=== PATIENT | female | born 1960 | race Caucasian/White ===

== ENCOUNTER 2018-09-04 11:14 | Outpatient (REF) | payer MEDICARE, SELFPAY ==
--- NOTE | 2018-09-04 11:00 | PAPFT_PTH ---
PATIENT: Coni Dennison LOC: [facility] U#:[id number] AGE/SX: 58/F ROOM: RE09/04/[address]: NAYELI Bernstein : 1960 BED: DIS: 09/04/2018 SPEC #: [id number] RECD: 09/04/18 12:58 STATUS: JUANITA REQ #: [id number] TARAN: 09/04/18 11:[address]: Roxy Ramires DEPT: [facility] Cytology RECD BY: Brooklyn Mark ENTERED: 09/04/18 12:58 SP TYPE: PAPFT OTHR DR: Bharat Levy MD Tissues: 1 - CX/ENDOCX FOR PAP SMEARS Procedures: PAP THIN PREP/[facility] Screening Comments: [id number]
== END 2018-09-04 11:34 ==
LOC: LBN 11:14
PROVIDERS: PCP Family Medicine; Visit Provider Nurse Practitioner Family
DX: Z12.4 Encounter for screening for malignant neoplasm of cervix (principal)
CPT/HCPCS: 88142

== ENCOUNTER 2018-09-25 00:06 | Outpatient (CLI) | payer MEDICARE, SELFPAY ==
--- NOTE | 2018-09-25 10:29 | DI.MAMMO_ITS ---
SYMPTOMS/DIAGNOSIS: SCREENING, Z12.31 MAMMOGRAMS: Mammograms were interpreted according to the usual protocol including computer analysis with CAD system, tomosynthesis and C view imaging. Comparison is with the prior examinations. Calcifications are seen. No suspicious masses are seen in the right breast. There is an asymmetric density in the posterior central left breast seen on the craniocaudad view. This area should be further evaluated with a spot compression view. Ultrasound may be indicated at that time. IMPRESSION: Additional views of the left breast as described above. Category 0 , breast density B. [facility] ASSESSMENT OF FINDINGS: Incomplete: Needs additional imaging evaluation. Category 0. Patient will receive a letter notifying them of these results. BI-RADS category B. There are scattered areas of fibroglandular density.
== END 2018-09-25 00:26 ==
PROVIDERS: PCP Family Medicine; Visit Provider Nurse Practitioner Family
DX: Z12.31 Encounter for screening mammogram for malignant neoplasm of breast (principal); R92.8 Other abnormal and inconclusive findings on diagnostic imaging of breast
CPT/HCPCS: 77063; 77067

== ENCOUNTER 2018-10-02 14:15 | Outpatient (CLI) | payer MEDICARE, SELFPAY ==
--- NOTE | 2018-10-02 14:20 | DI.COMBO_ITS ---
SYMPTOM/DIAGNOSIS: F/U ABNL MAMMO, LT ASYMMETRIC DENSITY LEFT BREAST ADDITIONAL VIEWS AND LEFT BREAST ULTRASOUND: Additional images are interpreted according to the usual protocol including tomosynthesis and 2D imaging. In the area of concern on the initial mammogram, there is no persistent mass. Asymmetric density is seen in the medial left breast on the spot compression view. It appears unchanged compared to prior examinations. Nonspecific benign appearing calcifications are seen in the breast. These appear stable. At ultrasound, there is a well circumscribed, radially oriented, anechoic lesion at the 1 o'clock position of the left breast, 6 cm. from the nipple. No internal blood flow or solid component is seen. No suspicious cystic or solid masses are seen in the visualized portions of the left breast. IMPRESSION: No definite evidence for malignancy. A 6 month follow up left breast mammogram is requested for re-evaluation. Category 3. The findings were discussed with the patient on the date of the examination. Breast density, Category B. MQSA ASSESSMENT OF FINDINGS: Probably benign. Six month follow-up recommended. Category 3. Patient will receive a letter notifying them of these results. BI-RADS category B. There are scattered areas of fibroglandular density.
== END 2018-10-02 14:35 ==
PROVIDERS: PCP Family Medicine; Visit Provider Nurse Practitioner Family
DX: Z12.31 Encounter for screening mammogram for malignant neoplasm of breast (principal); R92.8 Other abnormal and inconclusive findings on diagnostic imaging of breast; N60.82 Other benign mammary dysplasias of left breast
CPT/HCPCS: 76642; 77063; 77067

== ENCOUNTER 2019-04-08 00:10 | Outpatient (CLI) | payer MEDICARE, SELFPAY ==
--- NOTE | 2019-04-08 13:21 | DI.MAMMO_ITS ---
SYMPTOM/DIAGNOSIS: R92.8, F/U ABNL MAMMO, 6 MO F/U LEFT MAMMOGRAM: Mammograms were interpreted according to the usual protocol including computer analysis with CAD system, tomosynthesis and C view imaging. This is a 6 month follow up from 09/25/18 for an area of nodularity in the upper outer quadrant. The left breast is composed of scattered fibroglandular densities, breast density, Category B. No suspicious masses or suspicious microcalcifications are seen. There is nodularity in the upper outer quadrant of the breast which appears stable when compared with exams back to 2007. IMPRESSION: Category 2, negative mammogram with benign findings. Bilateral screening should be resumed in 6 months. [facility] ASSESSMENT OF FINDINGS: Negative with benign findings. Category 2. Patient will receive a letter notifying them of these results. BI-RADS category B. There are scattered areas of fibroglandular density.
== END 2019-04-08 00:30 ==
PROVIDERS: PCP Family Medicine; Visit Provider Nurse Practitioner Family
DX: Z12.31 Encounter for screening mammogram for malignant neoplasm of breast (principal); R92.8 Other abnormal and inconclusive findings on diagnostic imaging of breast; N60.82 Other benign mammary dysplasias of left breast
CPT/HCPCS: 77061; 77065; G0279

== ENCOUNTER 2019-05-27 20:37 | Emergency (ER) | payer MEDICARE, SELFPAY ==
--- NOTE | 2019-05-27 20:42 | NUR.NOTE ---
Nursing Note: pt states that approximately 3 hrs ago she got part of her hearing aid stuck in her ear and has not been able to remove it
[2019-05-27 20:43] VITALS: BP 150/90; RESP 16; TEMP 36.8; O2SAT 93
--- NOTE | 2019-05-27 21:07 | W.ED.GENAD ---
Discharge Plan Disposition Patient Disposition: HOME Discharge Details Chief Complaint: EarProblem Clinical Impression: Foreign body in right ear Primary Care Provider: Bharat Levy ED Provider: Cristhian Orlando Home Meds and New Rx's Prescriptions: Continued paroxetine HCl 20 mg tablet 20 mg PO DAILY Qty: 90 RF: 4 acetaminophen [Tylenol] 325 MG tablet 325 mg PO PRN RF: 0 albuterol sulfate 2.5 MG/0.5 ML solution for nebulization 2.5 mg Inhalation Q6H PRN Qty: 1 RF: 0 montelukast [Singulair] 10 mg tablet 10 mg PO DAILY Qty: 90 RF: 4 clonazepam 1 mg tablet 1 mg PO HS Qty: 30 RF: 2 varenicline 1 mg tablet 1 mg PO BID Qty: 60 RF: 2 Discharge Instructions Additional Instructions: Please follow-up with your career information specialist Return to the ER for any worsening or new concerning symptoms. Medical Decision Making 58-year-old female here with piece of hearing aid stuck in her right external canal. Patient provided verbal informed consent to proceed with foreign body removal. Surgical otoscope was utilized to visualize silicone And right external auditory canal. Forceps utilized to grasp foreign body and easily removed. Patient had some discomfort during the procedure. There is no bleeding. Otoscopic examination of her tympanic membrane post procedure revealed normal tympanic membrane with no perforation. Patient noted significant improvement in discomfort with removal. Usual and customary discharge instructions were provided. HPI General Mode of arrival: ambulatory. Date/Time Provider Initiated Documentation: 05/27/19 20:46. Limitations to Documentation: no limitations. Information obtained by: patient. HPI Narrative: 58-year-old female here with foreign body in her right ear. Patient notes that piece of her hearing aid broke off in her ear about 3 hours ago. She is been attempting to remove it unsuccessfully and thinks she caused some trauma to her external ear canal. Discomfort is moderate. Worse on palpation. No modifiers. No associated bleeding from her ear. Related Data Home Medications Medication Instructions Recorded Confirmed acetaminophen [Tylenol] 325 mg PO PRN tab-cap 09/26/16 05/27/19 albuterol sulfate 2.5 mg INHALATION Q6H PRN #1 box 11/21/17 05/27/19 paroxetine 20 mg tablet 20 mg PO DAILY #90 tab-cap 11/15/18 05/27/19 montelukast 10 mg tablet 10 mg PO DAILY #90 tab-cap 01/14/19 03/14/19 clonazepam 1 mg tablet 1 mg PO HS #30 tab-cap 03/21/19 05/27/19 varenicline 1 mg tablet 1 mg PO BID #60 tab 04/08/19 05/27/19 Previous Rx's Medication Instructions Recorded albuterol sulfate 2.5 mg INHALATION Q6H PRN #1 box 11/21/17 paroxetine 20 mg tablet 20 mg PO DAILY #90 tab-cap 11/15/18 montelukast 10 mg tablet 10 mg PO DAILY #90 tab-cap 01/14/19 clonazepam 1 mg tablet 1 mg PO HS #30 tab-cap 03/21/19 varenicline 1 mg tablet 1 mg PO BID #60 tab 04/08/19 Allergies Allergy/AdvReac Type Severity Reaction Status Date / Time pneumococcal vaccine Allergy Severe Verified 05/27/19 20:46 bacitracin Allergy Intermediate Hives Verified 05/27/19 20:46 latex Allergy Intermediate Hives Verified 05/27/19 20:46 neomycin Allergy Intermediate Hives Verified 05/27/19 20:46 polymyxin B Allergy Intermediate Hives Verified 05/27/19 20:46 varenicline Allergy Intermediate Hives Verified 05/27/19 20:46 azithromycin AdvReac Intermediate Malaise, Verified 05/27/19 20:46 stomach discomfort trazodone AdvReac Intermediate Headache Verified 05/27/19 20:46 General Stated Complaint: EarProblem HARDIK: 5 Review of Systems ENT Reports as per HPI [facility] Medical History Grief at loss of child (Resolved) Surgical History Adenoidectomy (~2006) Bilateral salpingectomy with oophorectomy Cervical Procedure (~06/2005) Cholecystectomy (~2000) Colectomy Dilation and curettage (12/08/10) Endometrial Biopsy (~05/2005) HYSTERSCOPY (12/08/10) Myringotomy w/ PE (pressure equalizing) tubes Oophrectomy, Both (~1999) Social History Smoking/Tobacco Use Status: Current every day Tobacco Type: cigarettes Alcohol Intake: never Drug use: Current Sobriety Substance use type: does not use What type of physical activity do you participate in: none Seatbelt use: always Do you feel safe at home: Yes Do you feel safe in your relationship?: Yes Female Reproductive History Menstrual Menopause type: natural (LMP 2009) Exam HENMT Ears: EAC abnormal foreign body on the right (Silicone hearing aid cap) Skin Trauma: no lacerations or abrasions (Right ear) Course Vital Signs Temperature 36.8 C 05/27/19 20:43 Respiratory Rate 16 05/27/19 20:43 Blood Pressure 150/90 H 05/27/19 20:43 Pulse Oximetry 93 L 05/27/19 20:43 Temperature 36.8 C 05/27/19 20:43 Temperature Source Skin 05/27/19 20:43 Respiratory Rate 16 05/27/19 20:43 Respiratory Effort 05/27/19 20:47 Blood Pressure 150/90 H 05/27/19 20:43 Blood Pressure Position Sitting 05/27/19 20:43 Pulse Oximetry 93 L 05/27/19 20:43 Oxygen Delivery Method Room Air 05/27/19 20:43 Oxygen Flow Rate 0 05/27/19 20:43 Pain Level 2 05/27/19 20:43
[2019-05-27 21:12] VITALS: BP 150/90; RESP 16; TEMP 36.8; O2SAT 93
--- NOTE | 2019-05-27 21:14 | ED.GENADUL_ITS ---
Discharge Plan Disposition Patient Disposition: HOME Discharge Details Chief Complaint: EarProblem Clinical Impression: Foreign body in right ear Primary Care Provider: Bharat Levy ED Provider: Cristhian Orlando Home Meds and New Rx's Prescriptions: Continued paroxetine HCl 20 mg tablet 20 mg PO DAILY Qty: 90 RF: 4 acetaminophen [Tylenol] 325 MG tablet 325 mg PO PRN RF: 0 albuterol sulfate 2.5 MG/0.5 ML solution for nebulization 2.5 mg Inhalation Q6H PRN Qty: 1 RF: 0 montelukast [Singulair] 10 mg tablet 10 mg PO DAILY Qty: 90 RF: 4 clonazepam 1 mg tablet 1 mg PO HS Qty: 30 RF: 2 varenicline 1 mg tablet 1 mg PO BID Qty: 60 RF: 2 Discharge Instructions Additional Instructions: Please follow-up with your beauty specialist Return to the ER for any worsening or new concerning symptoms. Medical Decision Making 58-year-old female here with piece of hearing aid stuck in her right external canal. Patient provided verbal informed consent to proceed with foreign body removal. Surgical otoscope was utilized to visualize silicone And right external auditory canal. Forceps utilized to grasp foreign body and easily removed. Patient had some discomfort during the procedure. There is no bleeding. Otoscopic examination of her tympanic membrane post procedure revealed normal tympanic membrane with no perforation. Patient noted significant improvement in discomfort with removal. Usual and customary discharge instructions were provided. HPI General Mode of arrival: ambulatory . Date/Time Provider Initiated Documentation: 05/27/19 20:46 . Limitations to Documentation: no limitations . Information obtained by: patient . HPI Narrative: 58-year-old female here with foreign body in her right ear. Patient notes that piece of her hearing aid broke off in her ear about 3 hours ago. She is been attempting to remove it unsuccessfully and thinks she caused some trauma to her external ear canal. Discomfort is moderate. Worse on palpation. No modifiers. No associated bleeding from her ear. Related Data Home Medications Medication Instructions Recorded Confirmed acetaminophen [Tylenol] 325 mg PO PRN tab-cap 09/26/16 05/27/19 albuterol sulfate 2.5 mg INHALATION Q6H PRN #1 box 11/21/17 05/27/19 paroxetine 20 mg tablet 20 mg PO DAILY #90 tab-cap 11/15/18 05/27/19 montelukast 10 mg tablet 10 mg PO DAILY #90 tab-cap 01/14/19 03/14/19 clonazepam 1 mg tablet 1 mg PO HS #30 tab-cap 03/21/19 05/27/19 varenicline 1 mg tablet 1 mg PO BID #60 tab 04/08/19 05/27/19 Previous Rx's Medication Instructions Recorded albuterol sulfate 2.5 mg INHALATION Q6H PRN #1 box 11/21/17 paroxetine 20 mg tablet 20 mg PO DAILY #90 tab-cap 11/15/18 montelukast 10 mg tablet 10 mg PO DAILY #90 tab-cap 01/14/19 clonazepam 1 mg tablet 1 mg PO HS #30 tab-cap 03/21/19 varenicline 1 mg tablet 1 mg PO BID #60 tab 04/08/19 Allergies Allergy/AdvReac Type Severity Reaction Status Date / Time pneumococcal vaccine Allergy Severe Verified 05/27/19 20:46 bacitracin Allergy Intermediate Hives Verified 05/27/19 20:46 latex Allergy Intermediate Hives Verified 05/27/19 20:46 neomycin Allergy Intermediate Hives Verified 05/27/19 20:46 polymyxin B Allergy Intermediate Hives Verified 05/27/19 20:46 varenicline Allergy Intermediate Hives Verified 05/27/19 20:46 azithromycin AdvReac Intermediate Malaise, Verified 05/27/19 20:46 stomach discomfort trazodone AdvReac Intermediate Headache Verified 05/27/19 20:46 General Stated Complaint: EarProblem HARDIK: 5 Review of Systems ENT Reports as per HPI [facility] Medical History Grief at loss of child (Resolved) Surgical History Adenoidectomy (~2006) Bilateral salpingectomy with oophorectomy Cervical Procedure (~06/2005) Cholecystectomy (~2000) Colectomy Dilation and curettage (12/08/10) Endometrial Biopsy (~05/2005) HYSTERSCOPY (12/08/10) Myringotomy w/ PE (pressure equalizing) tubes Oophrectomy, Both (~1999) Social History Smoking/Tobacco Use Status: Current every day Tobacco Type: cigarettes Alcohol Intake: never Drug use: Current Sobriety Substance use type: does not use What type of physical activity do you participate in: none Seatbelt use: always Do you feel safe at home: Yes Do you feel safe in your relationship?: Yes Female Reproductive History Menstrual Menopause type: natural (LMP 2009) Exam HENMT Ears: EAC abnormal foreign body on the right (Silicone hearing aid cap) Skin Trauma: no lacerations or abrasions (Right ear) Course Vital Signs Temperature 36.8 C 05/27/19 20:43 Respiratory Rate 16 05/27/19 20:43 Blood Pressure 150/90 H 05/27/19 20:43 Pulse Oximetry 93 L 05/27/19 20:43 Temperature 36.8 C 05/27/19 20:43 Temperature Source Skin 05/27/19 20:43 Respiratory Rate 16 05/27/19 20:43 Respiratory Effort 05/27/19 20:47 Blood Pressure 150/90 H 05/27/19 20:43 Blood Pressure Position Sitting 05/27/19 20:43 Pulse Oximetry 93 L 05/27/19 20:43 Oxygen Delivery Method Room Air 05/27/19 20:43 Oxygen Flow Rate 0 05/27/19 20:43 Pain Level 2 05/27/19 20:43
== END 2019-05-27 21:12 | disposition home or self-care (01) ==
PROVIDERS: Emergency Provider Student in an Organized Health Care Education/Training Program; PCP Family Medicine
DX: T16.1XXA Foreign body in right ear, initial encounter (principal)
CPT/HCPCS: 69200; 99282

== ENCOUNTER 2019-09-10 11:40 | Outpatient (CLI) | payer MEDICARE, SELFPAY ==
[2019-09-10 12:56] LABS: HCT 42.9 % (36.0-46.0); HGB 14.1 g/dL (12.0-15.5); Mean Corp. HGB Concentration 32.9 g/dL (32.0-36.0); Mean Corpuscular Hemoglobin 30.5 pg (27.0-33.0); Mean Corpuscular Volume 92.9 fL (80-95); Mean Platelet Volume 8.8 fL (8.0-11.0); Platelet Count 384 x1000/uL (130-400); RBC 4.62 m/cumm (4.00-5.20); RBC Distribution Width 12.8 % (11.7-14.6); White Blood Cell Count 8.57 k/cumm (4.4-10.8)
[2019-09-10 13:53] LABS: ESR 22 mm/hr (0-30)
[2019-09-10 14:09] LABS: ALT 22 U/L (14-59); AST 20 U/L (15-37); Albumin 3.7 g/dL (3.4-5.0); Alkaline Phosphatase 110 U/L (46-116); Anion Gap 8.6 mmol/L (3-11); BUN 14 mg/dL (7-18); Bilirubin, Total 0.3 mg/dL (0.2-1.0); C-Reactive Protein 0.91 mg/dL (0.0-0.3); CO2 29.4 mmol/L (21.0-32.0); Calcium 9.4 mg/dL (8.5-10.1); Chloride 103 mmol/L (98-107); Glucose 93 mg/dL (70-100); Potassium 4.5 mmol/L (3.5-5.1); Sodium 141 mmol/L (136-145); TSH 2.08 uIU/mL (0.36-3.74); Total Protein 6.8 g/dL (6.4-8.2)
== END 2019-09-10 12:00 ==
PROVIDERS: PCP Family Medicine; Visit Provider Family Medicine
DX: R53.83 Other fatigue (principal); F32.9 Major depressive disorder, single episode, unspecified; M25.50 Pain in unspecified joint
CPT/HCPCS: 36415; 80053; 85027; 85652; 84443; 86140

== ENCOUNTER 2019-11-06 13:52 | Outpatient (CLI) | payer MEDICARE, SELFPAY ==
--- NOTE | 2019-11-06 13:45 | DI.RAD_ITS ---
EXAM: XR FOOT RT COMPLETE INDICATION: CONTUSION POSTERIOR HEEL S/P 2 X 6 FELL ON FOOT, S90.31XA. COMPARISON: No exams were available for comparison TECHNIQUE: 2D digital imaging was performed. FINDINGS: No acute fracture or dislocation is present. No radiopaque foreign bodies are seen in the soft tissu es. There does appear to be soft tissue swelling at the heel. IMPRESSION: No acute fracture or dislocation.
== END 2019-11-06 14:12 ==
PROVIDERS: PCP Family Medicine; Visit Provider Family Medicine
DX: M79.671 Pain in right foot (principal); S90.31XA Contusion of right foot, initial encounter; M79.89 Other specified soft tissue disorders
CPT/HCPCS: 73630

== ENCOUNTER 2019-12-30 14:21 | Outpatient (CLI) | payer MEDICARE, SELFPAY ==
--- NOTE | 2019-12-30 15:47 | DI.RAD_ITS ---
EXAM: XR LUMBAR SPINE COMPLETE CLINICAL HISTORY: pain R52. TECHNIQUE: 2D digital imaging was performed. COMPARISON: No exams were available for comparison FINDINGS: BONES: No fracture or destructive lesion. There is L5 spondylolysis. There is grade 1 spondylolisthe sis of L5 on S1. Osteophytes are seen at the endplates in the lower lumbar spine. There are degenera tive changes seen at the facet joints at L4-5 and L5-S1. DISKS: There is mild disc space narrowing at L5-S1. ALIGNMENT: Grade 1 spondylolisthesis of L5 on S1. SOFT TISSUE: Normal. IMPRESSION: Mild degenerative changes in the lumbar spine. L5 spondylolysis and grade 1 spondylolisthesis of L5 on S1.
== END 2019-12-30 14:41 ==
PROVIDERS: PCP Family Medicine; Visit Provider Internal Medicine
DX: M54.5 Low back pain (principal); M47.817 Spondylosis without myelopathy or radiculopathy, lumbosacral region; M43.06 Spondylolysis, lumbar region; M43.17 Spondylolisthesis, lumbosacral region
CPT/HCPCS: 72110

== ENCOUNTER 2020-03-19 09:28 | Outpatient (CLI) | payer MEDICARE, SELFPAY ==
[2020-03-20 19:54] LABS: COVID-19 RT-PCR UVMMC Result Negative (Negative)
== END 2020-03-19 09:48 ==
PROVIDERS: PCP Family Medicine; Visit Provider Family Medicine
DX: R05 Cough (principal); R06.09 Other forms of dyspnea
CPT/HCPCS: U0003

== ENCOUNTER 2020-09-04 07:56 | Outpatient (CLI) | payer MEDICARE, SELFPAY ==
[2020-09-07 11:42] LABS: Patient Race White; SARS-CoV-2 RNA Undetected (Undetected); SARS-CoV-2 Specimen Source Nasopharynx
== END 2020-09-04 08:16 ==
PROVIDERS: PCP Nurse Practitioner; Visit Provider Nurse Practitioner Family
DX: R06.02 Shortness of breath (principal)
CPT/HCPCS: U0003

== ENCOUNTER 2020-10-28 03:46 | Outpatient (CLI) | payer MEDICARE, SELFPAY ==
[2020-10-28 13:48] LABS: Hemoglobin A1C 5.9 % (<5.7)
[2020-10-28 14:00] LABS: Calculated LDL 147 mg/dL (<100); Cholesterol 217 mg/dL (<200); HDL Cholesterol 45 mg/dL (40-60); Triglyceride 128 mg/dL (<150)
[2020-10-29 19:56] LABS: Cat Epithelium IgE <0.35 kU/L; Cladosporium IgE <0.35 kU/L; Cocklebur IgE <0.35 kU/L; Dog Dander IgE <0.35 kU/L; Lamb's Quarter IgE <0.35 kU/L; Short Ragweed IgE <0.35 kU/L; Timothy Grass IgE <0.35 kU/L
[2020-10-29 20:22] LABS: Wormwood IgE <0.35 kU/L
[2020-11-05 17:49] LABS: CLASS 0; Fusarium oxysporum/vasinfectum <0.35 kU/L (<0.35); Rhodotorula IgE <0.35 kU/L (<0.35)
[2020-11-06 19:46] LABS: Alternaria Tenuis IgE <0.35 kU/L; Aspergillus Fumigatus IgE <0.35 kU/L; Bermuda Grass IgE <0.35 kU/L; Cockroach IgE <0.35 kU/L; Cottonwood IgE <0.35 kU/L; D Farinae IgE <0.35 kU/L; D Pteronyssinus IgE <0.35 kU/L; Eastern Sycamore IgE <0.35 kU/L; Elm IgE <0.35 kU/L; Giant Ragweed IgE <0.35 kU/L; Oak IgE <0.35 kU/L; Penicillium chrysogenum IgE <0.35 kU/L; Red Sorrel IgE <0.35 kU/L; Rough Pigweed IgE <0.35 kU/L; Silver Birch IgE <0.35 kU/L; Walnut Tree IgE <0.35 kU/L
[2020-11-06 20:08] LABS: Epicoccum purpurascens IgE <0.35 kU/L; Stemphyllium IgE <0.35 kU/L
[2020-11-11 17:48] LABS: CLASS 0; Cedar Red IgE <0.10 kU/L (<0.35)
== END 2020-10-28 04:06 ==
PROVIDERS: PCP Nurse Practitioner; Visit Provider Otolaryngology Otolaryngology/Facial Plastic Surgery
DX: R73.01 Impaired fasting glucose (principal); I63.50 Cerebral infarction due to unspecified occlusion or stenosis of unspecified cerebral artery; Z91.09 Other allergy status, other than to drugs and biological substances
CPT/HCPCS: 36415; 80061; 86003; 83036

== ENCOUNTER 2021-01-08 17:58 | Outpatient (REF) | payer MEDICARE, SELFPAY ==
[2021-01-10 15:29] LABS: COVID-19 RT-PCR UVMMC Result Negative (Negative)
== END 2021-01-08 17:59 | disposition home or self-care (01) ==
LOC: LBN 17:58
PROVIDERS: PCP Nurse Practitioner; Visit Provider Student in an Organized Health Care Education/Training Program
DX: Z20.822 Contact with and (suspected) exposure to COVID-19 (principal)
CPT/HCPCS: U0003

== ENCOUNTER 2021-02-05 13:48 | Emergency (ER) | payer MEDICARE, SELFPAY ==
--- NOTE | 2021-02-05 14:00 | W.ED.GENAD ---
Discharge Plan Disposition Patient Disposition: HOME Condition: Stable Discharge Details Clinical Impression: Acute respiratory infection, Pneumonia Primary Care Provider: Griselda Serna ED Provider: Marci Estrada Home Meds and New Rx's Prescriptions: New amoxicillin-pot clavulanate [Augmentin] 875-125 mg tablet 1 tab PO BID Qty: 10 RF: 0 doxycycline hyclate 100 mg tablet 100 mg PO BID Qty: 10 RF: 0 Continued paroxetine HCl 20 mg tablet 20 mg PO DAILY Qty: 90 RF: 4 clonazepam 1 mg tablet 1 mg PO HS Qty: 30 RF: 5 acetaminophen [Tylenol] 325 MG tablet 325 mg PO PRN RF: 0 albuterol sulfate 2.5 mg/0.5 mL solution for nebulization 2.5 mg Inhalation Q6H PRN Qty: 1 RF: 4 Discharge Instructions Instructions: Pneumonia (ED), Instructions for Self Monitoring Oxygen Saturation Additional Instructions: Your x-ray is reassuring today. However, I am concerned that your exam is more suggestive of pneumonia. I do feel that antibiotics are appropriate at this point. You will be started on Augmentin and doxycycline. Medications have been transmitted to your pharmacy of choice. Please continue on prednisone as previously prescribed by primary care. Please encourage water intake. Please continue with your nebulizer as previously prescribed. Your COVID-19 testing is pending. Please quarantine until these results have returned. We will contact you to the results have come back. If you develop difficulty breathing, increased shortness of breath, having oxygen saturations below 92%, chest pain or other new/worsening symptoms please seek care urgently once again. You are going home with home pulse oxyimeter as we are concerned you may have COVID. Attached is information on how to check this. Please follow up with your primary care in one week for reevaluation. Referrals: Griselda Serna, [employer] [Primary Care Provider] - Discharge Data Discharge Date/Time-TO BE ENTERED AT DEPARTURE: 02/05/21 15:35 Medical Decision Making Patient is a pleasant 60-year-old female presenting with chief complaint of cough, diminished with a sense of taste and smell, general malaise, diarrhea. She reports that symptoms began 4 days ago. Cough has been worsening. States that she has been having some shortness of breath. Has difficulty breathing. Denies any chest pain. No known fevers or chills. No recent travel. No sick contacts. Past history significant for active smoking, chronic rhinitis, postnasal drip, allergies, depression, fibromyalgia, asthma, COPD. Patient reports that she was seen by her primary care this morning who sent her to the emergency department for chest x-ray as well as Covid testing. Patient has been on prednisone and has been using nebulizer with minimal relief. On exam, patient appears nontoxic. Vital signs are stable she is hypertensive blood pressure 150/86. She no lower extremity edema, no calf tenderness. She has slight crackles in the left lower lobe, lung sounds otherwise clear. Normal cardiac exam. Chest x-ray was obtained and reviewed by radiologist: FINDINGS: LUNGS: Clear. No pleural abnormality seen. HEART: Normal. MEDIASTINUM: Normal. BONES: Unremarkable. IMPRESSION: No acute pulmonary findings. I discussed these findings with the patient. As she did have crackles noted on exam, worsening cough as well as her comorbidities, I am concerned that the patient may be developing pneumonia and feel that treatment with antibiotics appropriate needed in setting of normal chest x-ray. Patient will be started on doxycycline. She will continue with the steroids as previously prescribed. Encourage hydration. Return precautions were discussed. She will quarantine until the results have returned. Advise follow-up with primary care for reevaluation 1 week. All of her questions and concerns were addressed and she is agreement this plan. HPI General Mode of arrival: ambulatory. Date/Time Provider Initiated Documentation: 02/05/21 14:00. Limitations to Documentation: no limitations. Information obtained by: patient and RN notes reviewed. History of Present Illness 60 year old F presents to the emergency department with the chief complaint of Cough, shortness of breath, change in smell, general malaise, described as moderate, with intensity rated at 5. Quality is described as aching (Report generalized body ache), Patient reports no radiation. Patient started experiencing this day(s) (3) and it has been constant. No relieving factors improve symptom(s), No exacerbating factors reported . Patient notes cough, fever/chills, shortness of breath and weakness (Generalized fatigue); denies chest pain, diaphoresis, loss of appetite, nausea/vomiting and rash. Patient did receive the following treatments prior to arrival, other (Been on steroid) Related Data Home Medications Medication Instructions Recorded Confirmed acetaminophen [Tylenol] 325 mg PO PRN tab-cap 09/26/16 02/05/21 albuterol sulfate 2.5 mg/0.5 mL 2.5 mg INHALATION Q6H PRN #1 box 06/12/20 02/05/21 solution for nebulization clonazepam 1 mg tablet 1 mg PO HS #30 tab-cap 09/22/20 02/05/21 paroxetine HCl 20 mg tablet 20 mg PO DAILY #90 tab-cap 09/22/20 02/05/21 amoxicillin-pot clavulanate 1 tab PO BID #10 tab 02/05/21 [Augmentin] doxycycline hyclate 100 mg PO BID #10 tab 02/05/21 Previous Rx's Medication Instructions Recorded albuterol sulfate 2.5 mg/0.5 mL 2.5 mg INHALATION Q6H PRN #1 box 06/12/20 solution for nebulization clonazepam 1 mg tablet 1 mg PO HS #30 tab-cap 09/22/20 paroxetine HCl 20 mg tablet 20 mg PO DAILY #90 tab-cap 09/22/20 amoxicillin-pot clavulanate 1 tab PO BID #10 tab 02/05/21 [Augmentin] doxycycline hyclate 100 mg PO BID #10 tab 02/05/21 Allergies Allergy/AdvReac Type Severity Reaction Status Date / Time pneumococcal vaccine Allergy Severe Kennan like Verified 02/05/21 14:26 she was floating away. bacitracin Allergy Intermediate Hives Verified 02/05/21 14:26 latex Allergy Intermediate Hives Verified 02/05/21 14:26 neomycin Allergy Intermediate Hives Verified 02/05/21 14:26 polymyxin B Allergy Intermediate Hives Verified 02/05/21 14:26 varenicline Allergy Intermediate Hives Verified 02/05/21 14:26 azithromycin AdvReac Intermediate Malaise, Verified 02/05/21 14:26 stomach discomfort trazodone AdvReac Intermediate Headache Verified 02/05/21 14:26 General HARDIK: 5 Review of Systems Constitutional Constitutional: Reports as per HPI and Denies headache(s) Eyes Eyes: Reports as per HPI, Denies eye discharge and Denies irritation ENT Ears, Nose, Mouth, and Throat: Reports as per HPI and Denies headache(s) Cardiovascular Cardiovascular: Reports as per HPI, Denies chest pain and Denies dyspnea Respiratory Respiratory: Reports as per HPI and Denies dyspnea Gastrointestinal Gastrointestinal: Reports as per HPI, Denies abdominal pain, Reports change in bowel habits, Reports diarrhea (1 loose stool today ), Denies nausea and Denies vomiting Integumentary/Breasts Skin/Breast: Reports as per HPI and Denies rash Neurologic Neurologic: Reports as per HPI and Denies headache(s) [facility] Medical History (Updated 02/05/21 @ 15:19 by GUERDA Perez) Abnormal cervical Papanicolaou smear (04/26/05) 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 AFB culture Movement disorder post back injury Nicotine use disorder Substance abuse URI (upper respiratory infection) Surgical History Adenoidectomy (~2006) Bilateral salpingectomy with oophorectomy Cervical Procedure (~06/2005) COLPOSCOPY Cholecystectomy (~2000) Colectomy Dilation and curettage (12/08/10) Endometrial Biopsy (~05/2005) History of bilateral oophorectomy History of colectomy History of gynecological procedure History of myringotomy HYSTERSCOPY (12/08/10) [facility]: 1. FRAGMENTS OF BENIGN POLYPOID INACTIVE ENDOMETRIUM WITH FOCAL TUBAL METAPLASIA. 2. FRAGMENT OF CERVICAL SQUAMOUS MUCOSA AND ENDOCERVICAL GLANDS WITH NO SPECIFIC HISTOPATHOLOGIC FEATURES. Endometrial Biopsy, 12/08/10 [facility]; 1.BENIGN POLYPOID INACTIVE ENDOMETRIUM WITH FOCAL TUBAL METAPLASIA. Myringotomy w/ PE (pressure equalizing) tubes X 2 Oophrectomy, Both (~1999) Status post adenoidectomy Status post cholecystectomy Status post dilation and curettage Family History Mother Essential hypertension Dementia Breast cancer Father No problems noted. Brother No problems noted. Maternal Grandfather No problems noted. Paternal Grandfather No problems noted. Maternal Grandmother No problems noted. Paternal Grandmother Dementia Daughter Diabetes Essential hypertension Asthma Hyperlipidemia Daughter , age 38 Depression Substance abuse Social History Smoking/Tobacco Use Status: Current every day Tobacco Type: cigarettes Smoking packs per day: 0.5 Smoking cigarettes per day: 10.0 Quit status: has quit before Smoking risk assessment performed?: Yes Alcohol Intake: never Drug use: Current Sobriety Substance use type: does not use Caregiver/Support person: No Household members: spouse, children and other Details: Grandchildren Housing: house Communication Needs: None Do you need help understanding health information?: Never Pets and animals: Yes Sexually active: No Do you think of yourself as: straight/heterosexual Current gender identity: female What is your relationship status?: How often do you talk on the phone with friends or family?: once per week How often do you get together with friends or relatives?: never How often do you attend jehovah's witness or nondenominational services?: decline to answer Do you belong to any clubs or organized social groups?: no Panel score (0-1 are the most socially isolated patients): 1 What type of physical activity do you participate in: none Frequency: does not exercise Katlyn/Islam: None Special katlyn needs: No Seatbelt use: always Drive intox or ride w/intox class a regional truck driver: No Do you feel safe at home: Yes Do you feel safe in your relationship?: Yes Victim of physical abuse: No Victim of emotional abuse: No Victim of sexual abuse: No Would you like helpful sources: No Female Reproductive History Menstrual Menopause type: natural Exam Const General: cooperative, healthy appearing, comfortable, no acute distress, well developed and well groomed Nutritional Appearance: average body habitus and well nourished Orientation: alert and awake [facility] Head: normal to inspection, normocephalic and atraumatic Ears: hearing grossly normal bilaterally, external ears normal and TM's normal bilaterally General nose exam: external nose normal and nares normal Face and sinus: normal facial exam, sinuses nontender and face symmetric Mouth: oral mucosae normal, lip normal, tongue normal, oropharynx normal and moist mucous membranes Teeth and gingiva: dentition normal Throat: posterior oropharynx normal, tonsils normal and uvula midline Eyes General: appearance normal, both eyes and all related structures Neck Neck: normal visual inspection, full ROM, no lymphadenopathy and no meningeal signs Resp Effort & Inspection: normal respiratory effort, able to speak in complete sentences and no respiratory distress Auscultation: crackles on the left in the lower lung bernstein, no rales, no rhonchi and no wheezes Cardio Rate: regular rate Rhythm: regular rhythm Heart Sounds: S1 normal and S2 normal GI Inspection: normal to inspection Palpation: soft, no hepatosplenomegaly and nontender Skin General skin exam: no rashes or lesions noted Neuro General: patient alert and patient awake Cognition: normal cognition Speech: speech normal Gait: normal gait Extrem General: normal to inspection, no pedal edema, no calf tenderness and normal gait Psych Appearance: grossly normal and well kempt Mental Status: mental status grossly normal Speech and Movement: speech and movement normal
[2021-02-05 14:17] VITALS: BP 150/86; PULSE 76; RESP 18; TEMP 37.5; O2SAT 94
[2021-02-05 14:20] VITALS: RESP 18
--- NOTE | 2021-02-05 14:35 | DI.RAD_ITS ---
EXAM: XR PORTABLE CHEST AP CLINICAL HISTORY: SOB, cough TECHNIQUE: 2D digital imaging was performed. COMPARISON: CR CHEST 2 VIEWS PA,LAT from 04/09/2018 FINDINGS: LUNGS: Clear. No pleural abnormality seen. HEART: Normal. MEDIASTINUM: Normal. BONES: Unremarkable. IMPRESSION: No acute pulmonary findings. DATA REPOSITORY: RADIATION DOSE DELIVERED:
[2021-02-06 11:59] LABS: COVID-19 RT-PCR UVMMC Result Negative (Negative)
--- NOTE | 2021-02-08 10:08 | NUR.NOTE ---
Nursing Note: Negative COVID test result given. Verbalizes understanding.
== END 2021-02-05 15:35 | disposition home or self-care (01) ==
PROVIDERS: Emergency Provider Physician Assistant; PCP Nurse Practitioner
DX: J18.9 Pneumonia, unspecified organism (principal); Z20.822 Contact with and (suspected) exposure to COVID-19; J22 Unspecified acute lower respiratory infection
CPT/HCPCS: 99284; U0003; U0005; 71045; 99283

== ENCOUNTER 2021-02-18 03:10 | Outpatient (CLI) | payer MEDICARE, SELFPAY ==
[2021-02-18] MEDS: Inhaler, Assist Device 1 EACH MC (14:18)
[2021-02-18] MEDS: Albuterol HFA 18 GM 200 PUFF INH IH (14:18)
--- NOTE | 2021-02-22 16:29 | W.PFT ---
Date of service: 02/18/21 Time of Service: 12:57 Pulmonary Function Test Result Interpretation Spirometry: Moderately severe obstructive airways disease with no significant bronchodilator response Impression Moderately severe obstructive airways disease with no significant bronchodilator re Clinical Correlation therefore is recommended.
== END 2021-02-18 03:11 | disposition home or self-care (01) ==
LOC: RT 03:10
PROVIDERS: PCP Nurse Practitioner; Visit Provider Nurse Practitioner
DX: J44.9 Chronic obstructive pulmonary disease, unspecified (principal); R06.09 Other forms of dyspnea; F17.210 Nicotine dependence, cigarettes, uncomplicated; Z87.01 Personal history of pneumonia (recurrent)
CPT/HCPCS: 94060

== ENCOUNTER 2021-03-01 02:33 | Outpatient (CLI) | payer MEDICARE, SELFPAY ==
--- NOTE | 2021-03-01 08:00 | DI.MAMMO_ITS ---
EXAM: MG MAMMO SCREENING CLINICAL HISTORY: screening,Z12.39 TECHNIQUE: Bilateral full field digital CC and MLO mammographic images were obtained with 3D tomosyn thesis and utilizing computer aided detection (CAD). COMPARISON: Available for comparison. FINDINGS: Masses/Architectural Distortion: None seen. Microcalcifications: There is a collection of small calcifications in the central right breast 5 cm f rom the nipple. Skin Thickening/Nipple Retraction: None. IMPRESSION: 1. Microcalcifications in the central right breast 5 cm from the nipple. 2. Further evaluation with magnification views is requested. BI-RADS Category 0 - Assessment Incomplete: Need additional imaging evaluation Breast Density - Category B - Scattered areas of fibroglandular density Breast density category C or D implies that the patient has dense breast tissue. Dense breast tissue is very common and is not abnormal but dense breast tissue can make it harder to find cancer on a ma mmogram. Also, dense breast tissue may increase their breast cancer risk. This information about the result of the mammogram report was provided to the patient to raise their awareness. Use this report when you speak with the patient about their risks for breast cancer, which includes their family hist ory. At that time, you may recommend for more screening tests (Ultrasound or MRI) as they might be us eful based on their risk. A negative radiographic report should not delay biopsy if a dominant or clinically suspicious mass is present. Up to ten percent of cancers are not identified on mammography. A negative report may reinforce clinical impression. Adenosis and dense breasts may obscure an underlying neoplasm. False positive reports average 6 to 10%. Patient will receive a letter notifying them of these results.
== END 2021-03-01 02:53 ==
PROVIDERS: PCP Nurse Practitioner; Visit Provider Nurse Practitioner
DX: Z12.31 Encounter for screening mammogram for malignant neoplasm of breast (principal); R92.8 Other abnormal and inconclusive findings on diagnostic imaging of breast
CPT/HCPCS: 77063; 77067

== ENCOUNTER 2021-03-05 03:32 | Outpatient (CLI) | payer MEDICARE, SELFPAY ==
--- NOTE | 2021-03-05 | DI.MAMMO_ITS ---
EXAM: MG MAMMO SCREEN CALL BACK UNI and U/S breast RT limited CLINICAL HISTORY: F/U MAMMO,RT BREAST MICROCALCIFICATIONS,. TECHNIQUE: Craniocaudal and mediolateral oblique Full Field Digital Mammography views of the right b reast with Computer Aided Diagnosis followed by Tomosynthesis and right breast ultrasound. COMPARISON: Priors available for comparison. FINDINGS: Mammography/Tomosynthesis: Masses/Architectural Distortion: None seen. Microcalcifictions: Calcifications seen in the central right breast Skin Thickening/Nipple Retraction: None. Right breast US: Echotexture: Normal appearance of the glandular tissue. Shadowing: No suspicious foci. Cyst: 0.4 x 0.3 x 0.4 cm simple cyst at the 12 o'clock position 5 cm from the nipple. Solid lesions: None seen. Ductal dilation: None. IMPRESSION: 1. No evidence of malignancy is noted. 2. Unless there is more urgent need, follow-up screening mammography is recommended, as per [employer] guidelines. 3. The findings were discussed with the patient on the date of the examination. BI-RADS Category 2 - Benign Findings Breast Density - Category B - Scattered areas of fibroglandular density Breast density Category C or D implies that the patient has dense breast tissue. Dense breast tissue can make it harder to find cancer on a mammogram. Dense breast tissue is also associated with an incr eased risk of breast cancer. This information about the result of the mammogram report was provided to the patient to raise their awareness. Use this report when you speak with the patient about their risks for breast cancer, which includes their family history. At that time, you may recommend additional screening tests (Ultrasoun d or MRI) as these tests may add significant information. A negative radiographic report should not delay biopsy if a dominant or clinically suspicious mass is present. Up to ten percent of cancers are not identified on mammography. A negative report may reinforce clinical impression. Adenosis and dense breasts may obscure an underlying neoplasm. False positive reports average 6 to 10%. Patient will receive a letter notifying them of these results.
== END 2021-03-05 03:52 ==
PROVIDERS: PCP Nurse Practitioner; Visit Provider Nurse Practitioner
DX: Z12.31 Encounter for screening mammogram for malignant neoplasm of breast (principal); R92.8 Other abnormal and inconclusive findings on diagnostic imaging of breast; N60.01 Solitary cyst of right breast
CPT/HCPCS: 76642; 77063; 77067

== ENCOUNTER 2021-03-08 14:08 | Outpatient (REF) | payer MEDICARE, SELFPAY ==
--- NOTE | 2021-03-08 13:45 | PAPFT_PTH ---
PATIENT: Coni Dennison LOC: [facility] U#:[id number] AGE/SX: 60/F ROOM: RE03/08/[address]: NAYELI Bernstein : 1960 BED: DIS: 03/08/2021 SPEC #: [id number] RECD: 03/08/21 15:51 STATUS: JUANITA REQ #: [id number] TARAN: 03/08/21 13:[address]: Roxy Ramires DEPT: [facility] Cytology RECD BY: Brooklyn Mark ENTERED: 03/08/21 15:52 SP TYPE: PAPFT OTHR DR: Griselda Serna, PhD STENCILER Tissues: 1 - CX/ENDOCX FOR PAP SMEARS Procedures: PAP THIN PREP/UVM Screening HPV DNA PROBE Comments: [id number]
== END 2021-03-08 14:09 | disposition home or self-care (01) ==
LOC: LBN 14:08
PROVIDERS: PCP Nurse Practitioner; Visit Provider Nurse Practitioner Family
DX: Z12.4 Encounter for screening for malignant neoplasm of cervix (principal); Z11.51 Encounter for screening for human papillomavirus (HPV); R87.810 Cervical high risk human papillomavirus (HPV) DNA test positive
CPT/HCPCS: 88142; 87624

== ENCOUNTER → 2021-07-01 12:49 | Outpatient (BNVA) | payer MEDICARE, SELFPAY | PROVIDERS: PCP Nurse Practitioner; Referring Provider Nurse Practitioner; Visit Provider Physical Therapy Assistant | DX: Z12.11 Encounter for screening for malignant neoplasm of colon (principal) ==

== ENCOUNTER 2021-07-23 10:47 | Day surgery (SDC) | payer MEDICARE, SELFPAY ==
--- NOTE | 2021-07-22 15:45 | W.COLOREPORT ---
Date of service: 07/23/21 Colonoscopy Report Pre-op diagnosis general: CRC screen/fecal urgency & occ incont Post-op diagnosis procedure note: other (severe diverticular dx. adn anal mass ) Surgeon: Nahomi Alamo Anesthesia Type: General:No Airway Estimated blood loss (mL): 1 Pathology: other Complications: None Disposition: same day Prep: Miralax/Dulcolax Retraction Time: 10 mins Procedure Description: After informed consent was obtained the patient was taken to the procedure room and placed in a left decubitous position. Monitors were applied and a time out was done. The patients name, date of , procedure, allergies to medications and metal in their body was reviewed. The patient was then sedated. Once sedated and comfortable a rectal exam was done. External exam was normal. Internal exam revealed a normal sphincter tone and no palpable masses. She does have a mass at the anus at the 12 o'clock position and in a similar pattern adjacent to the anus at the 9 o'clock position biopsies from both of these are taken. All specimens are retrieved and no bleeding is noted. She does have vaginal atrophy. There is no signs of a rectocele. The scope was then introduced and retrofelexed. Internal hemorrhoidal tags were identified. The scope was then advanced to the cecum without difficulty. The TI and appendiceal orifice were identified. The prep was good 10. The scope was then slowly retracted over 10 minutes back into the rectum. She had severe diverticular disease throughout the entirety of her colon. She has had a previous sigmoid resection. There is no signs of stenosis at the anastomosis. The scope was removed and the patient was woken up and taken back to Same day surgery in stable condition. The patient tolerated the procedure well and there were no immediate complications. Follow up: The patient should follow up in 10 years unless they develop changes in bowel habits or other new gastrointestinal complaints.
--- NOTE | 2021-07-22 15:46 | PDOC.DSDIS_ITS ---
Discharge Plan Disposition Patient Disposition: HOME Condition: Good Discharge Details Reason For Visit: colon scope Attending Provider: Nahomi Alamo Primary Care Provider: Griselda Serna Home Meds and New Rx's Prescriptions: No Action paroxetine HCl 20 mg tablet 20 mg PO DAILY Qty: 90 RF: 4 clonazepam 1 mg tablet 1 mg PO HS Qty: 30 RF: 5 acetaminophen [Tylenol] 325 MG tablet 325 mg PO PRN RF: 0 albuterol sulfate 2.5 mg/0.5 mL solution for nebulization 2.5 mg Inhalation Q6H PRN Qty: 30 RF: 4 benzonatate [Tessalon Perles] 100 mg capsule 100 mg PO TID PRN (Reason: cough) Qty: 30 RF: 1 atorvastatin 20 mg tablet 20 mg PO HS RF: 0 montelukast [Singulair] 10 mg Tablet 10 mg PO DAILY RF: 0 Discharge Instructions Additional Instructions: DSU Colonoscopy Post- Op Instructions Instructions for Everyone who is given Anesthesia: For your safety, please do the following for the next twenty-four (24) hours: *Do Not operate a motor vehicle (car, truck, motorcycle, etc.) *Do Not drink alcoholic beverages or use any recreational drugs for the first 24 hours or while taking pain medications. The medications in your body may have a reaction that can be dangerous. *Do Not make any important decisions or sign any important papers. Findings: Severeal diverticular Dx mass of anus Follow up: in 2 wks for bx results 1. No lifting over 20 pounds or strenuous activity for the first 24 hours after your procedure. After 24 hours there are no restrictions on your activity but you may feel fatigued for a few days. 2. After you arrive home you may have a light meal and return to your normal diet as you can tolerate it without feeling sick to your stomach. 3. You may have a bloated, gaseous feeling in your belly (abdomen) after a colonoscopy. Passing gas and belching will help. Walking or lying down on your left side with your knees flexed may relieve the discomfort. Call the office at [phone] (Office) or [phone] (Hospital) right away if you notice any of the following: a.Vomiting of blood or ?coffee ground stools?. b.Rectal bleeding 1Tbsp, blood clots or continuous bleeding. c.Severe belly (abdominal) pain. d.A hard distended belly (abdomen) and an inability to pass gas. 4. Please don?t expect to have a normal BM (bowel movement) for 2-3 days after your procedure. 5. If there are questions regarding the findings of your procedure, please contact your doctor 6. If you are unable to contact your doctor with a problem, contact the hospital at [phone]. 7. Continue all your regular medications unless directed otherwise. I understand the above instructions and have no questions. Signature of Patient or Adult Escort Name of Responsible Adult Escort Signature of Nurse Date/Time Activity:: see above Diet:: see above Discharge Orders Discharge Orders: Discharge Order (Routine); Ordered 07/22/21 Ordered By: Nahomi Alamo DS: Diagnosis Discharge Diagnosis (1) Diverticula of colon: Status: Acute (2) Mass of anus: Status: Acute
[2021-07-23 11:09] VITALS: BP 129/92; PULSE 88; RESP 16; TEMP 36.6; O2SAT 95
--- NOTE | 2021-07-23 11:35 | W.ANESPRE ---
General Info Date of Service Date Performed: 07/23/21 Height: 5 ft 6 in Weight: 94.7 kg Body Mass Index (BMI): 33.7 Surgical Procedure: Operation Date: 07/23/21 11:20 Proposed Procedures Side Surgeon eloise Alamo, DO Meds Allergies and Home Medications Allergies Allergy/AdvReac Type Severity Reaction Status Date / Time pneumococcal vaccine Allergy Severe [place] like Verified 07/23/21 11:04 she was floating away. bacitracin Allergy Intermediate Hives Verified 07/23/21 11:04 latex Allergy Intermediate Hives Verified 07/23/21 11:04 neomycin Allergy Intermediate Hives Verified 07/23/21 11:04 polymyxin B Allergy Intermediate Hives Verified 07/23/21 11:04 varenicline Allergy Intermediate Hives Verified 07/23/21 11:04 azithromycin AdvReac Intermediate Malaise, Verified 07/23/21 11:04 stomach discomfort trazodone AdvReac Intermediate Headache Verified 07/23/21 11:04 Home Medication Medication Instructions Recorded acetaminophen [Tylenol] 325 mg PO PRN tab-cap 09/26/16 paroxetine HCl 20 mg tablet 20 mg PO DAILY #90 tab-cap 09/22/20 albuterol sulfate 2.5 mg/0.5 mL 2.5 mg INHALATION Q6H PRN #30 ea 02/18/21 solution for nebulization benzonatate 100 mg capsule 100 mg PO TID PRN #30 cap 02/25/21 clonazepam 1 mg tablet 1 mg PO HS #30 tab-cap 03/23/21 atorvastatin 20 mg PO HS 07/21/21 montelukast [Singulair] 10 mg PO DAILY 07/23/21 Current Visit Medications: Current Medications Generic Name Dose Route Start Last Admin Trade Name Freq PRN Reason Stop Dose Admin Ringer's Solution 1,000 mls @ 80 mls/hr 07/23/21 06:00 IV 08/21/21 23:59 INFUSION [facility] IV Miscellaneous Supplies 1 each 07/23/21 06:00 Iv Access IV 08/21/21 23:59 DIRECTED [facility] Ondansetron HCl 4 mg 07/22/21 15:44 Ondansetron 4 Mg/2 Ml Vial IVP Q4H PRN PRN Nausea / Vomiting Sodium Chloride 0 ml 07/23/21 06:00 Normal Saline Flush 10 Ml Syr IV 08/21/21 23:59 PRN PRN Sodium Chloride 0 ml 07/23/21 06:00 Normal Saline 10 Ml Vial IJ 08/21/21 23:59 DIRECTED PRN Sterile Water 0 ml 07/23/21 06:00 Water,Injection,Sterile 10 Ml Vial IJ 08/21/21 23:59 DIRECTED PRN PFSH Active Problems Active Problems: Problem Status Onset Code Conductive hearing loss, unilateral 10/10/13 H90.2 Cerebrovascular accident of left pontine structure 10/06/84 I63.50 Cholesteatoma of middle ear 10/10/13 H71.90 Chronic obstructive lung disease J44.9 Primary fibromyalgia syndrome M79.7 Psoriasis 02/24/11 L40.9 Asthma 11/21/13 J45.909 Smoker F17.200 Depression F32.9 Prediabetes R73.03 Chronic rhinitis J31.0 Hyperlipidemia E78.5 Nicotine use disorder F17.200 Medical History Medical History (Updated 07/23/21 @ 11:03 by Chris Celis) Abnormal cervical Papanicolaou smear (04/26/05) Cochlear implant in place Dystonia of foot (10/06/17) Epilepsy H/O; 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 AFB culture Movement disorder post back injury Nicotine use disorder Substance abuse URI (upper respiratory infection) Surgical History Surgical History (Updated 07/23/21 @ 11:03 by Chris Celis) Adenoidectomy (~2006) Bilateral salpingectomy with oophorectomy Cervical Procedure (~06/2005) COLPOSCOPY Cholecystectomy (~2000) Colectomy Dilation and curettage (12/08/10) Endometrial Biopsy (~05/2005) History of bilateral oophorectomy History of colectomy History of gynecological procedure History of hysteroscopy History of myringotomy Hx of tonsillectomy HYSTERSCOPY (12/08/10) [facility]: 1. FRAGMENTS OF BENIGN POLYPOID INACTIVE ENDOMETRIUM WITH FOCAL TUBAL METAPLASIA. 2. FRAGMENT OF CERVICAL SQUAMOUS MUCOSA AND ENDOCERVICAL GLANDS WITH NO SPECIFIC HISTOPATHOLOGIC FEATURES. Endometrial Biopsy, 12/08/10 [facility]; 1.BENIGN POLYPOID INACTIVE ENDOMETRIUM WITH FOCAL TUBAL METAPLASIA. Myringotomy w/ PE (pressure equalizing) tubes X 2 Cochlear implant Oophrectomy, Both (~1999) Denies having a hysterectomy. States she had tubal ligations. Status post adenoidectomy Status post cholecystectomy Status post dilation and curettage Tobacco Smoking/Tobacco Use Status: Current every day Tobacco Type: cigarettes Smoking packs per day: 0.5 Smoking cigarettes per day: 10.0 Passive smoking exposure: Yes Quit Status: has quit before Alcohol Alcohol Intake: former Substance Use Substance use: Never Substance use type: does not use Vital Signs and Lab Results Vital Signs Most Recent Vital Signs in EMR: Most Recent Vital Signs Temp Pulse Resp BP Pulse Ox 36.6 C 88 16 129/92 H 95 07/23/21 11:09 07/23/21 11:09 07/23/21 11:09 07/23/21 11:09 07/23/21 11:09 Lab Results Blood Type / Crossmatch: No Data to Display Complete Blood Count: No Data to Display Complete Metabolic Panel: No Data to Display Liver Function Panel: No Data to Display Coagulation Panel: No Data to Display Cardiac Panel: No Data to Display Arterial Blood Gas: No Data to Display Venous Blood Gas: No Data to Display Pancreas Panel: No Data to Display Thyroid Panel: No Data to Display Infectious Disease: No Data to Display Blood Cultures: No Data to Display Toxicology Panel: No Data to Display Imaging and Studies Imaging and Studies Pulmonary Function Summary: Pulmonary Function Test Result Interpretation Spirometry: Moderately severe obstructive airways disease with no significant bronchodilator response Impression Moderately severe obstructive airways disease with no significant bronchodilator re Clinical Correlation therefore is recommended. Anesthesia Assessment and Plan Anesthesia History Personal History: No History of Anesthesia Complications Family History: No Family History of Anesthesia Complications Exercise Tolerance Exercise Tolerance: Metabolic Equivalents>4 Pertinent Negatives Pertinent Negatives: No Symptoms of GERD Cardiac & Pulmonary Exam Cardiac Exam: Normal S1/S2 Heart Sounds Pulmonary Exam: Clear Bilateral Breath Sounds Airway Exam Known Difficult Airway: No Mallampati Class: 2 Mouth Opening: Normal (> 3cm) Thyromental Distance: Greater than 3 cm Neck Range of Motion: Full ROM Neck Circumference: Normal Teeth Condition: Normal Dentition ASA Classification ASA Score: ASA 2 Emergency Case?: No NPO Status NPO Status: NPO Clears >2 hours, Solids >8 hours Anesthesia Plan Resuscitation Status: Full Code Anesthesia Technique: General Anesthesia Airway Planned: Natural Airway Monitors Used: Standard Monitors
[2021-07-23] MEDS: Lactated Ringers 1,000 ML 80 ML IV (11:37)
[2021-07-23 11:40] VITALS: BMI 33.7
--- NOTE | 2021-07-23 12:18 | BOWEL_PTH ---
PATIENT: Coni Dennison LOC: [facility] U#:[id number] AGE/SX: 61/F ROOM: RE07/23/[address]: Nahomi Alamo : 1960 BED: DIS: 07/23/2021 SPEC #: [id number] RECD: 07/23/21 13:06 STATUS: JUANITA MARCELO #: [id number] TARAN: 07/23/21 12:[address]: Nahomi Alamo DEPT: Surgical Specimen RECD BY: Brooklyn Mark ENTERED: 07/23/21 13:07 SP TYPE: Bowel OTHR DR: Griselda Serna, PhD LAPIDARIST Tissues: 1 - BIOPSY BOWEL Procedures: GROSS AND MICRO LEVEL 4 Comments: [id number]
[2021-07-23 12:27] VITALS: BP 121/72; PULSE 68; RESP 18; TEMP 36.5; O2SAT 96
--- NOTE | 2021-07-23 12:28 | W.ANESPOSTOP ---
Postoperative Evaluation Date, Time and Location Date Performed: 07/23/21 Time Performed: 12:28 Patient Location: Day Surgery Unit Vital Signs Most Recent Imported Vital Signs: Most Recent Vital Signs Temp Pulse Resp BP Pulse Ox 36.6 C 88 16 129/92 H 95 07/23/21 11:09 07/23/21 11:09 07/23/21 11:09 07/23/21 11:09 07/23/21 11:09 Most Recent Manually Entered Vital Signs: Adult Blood Pressure: 121/72 Heart Rate: 68 Respirations: 16 Oxygen Saturation (%): 96 Temperature (C): 36.5 C Pain Score (0-10 Scale): 0 Pain Score Most Recent Pain Score: Most Recent Pain Score Pain Level 0 07/23/21 11:09 Assessment Mental Status: Awake (Alert & Oriented to Patient Baseline) Airway and Respiratory Function: Patent airway with normal (patient baseline) respiratory exam Cardiovascular Function: Hemodynamically Stable Hydration Status: Adequately Hydrated Nausea & Vomiting: No Nausea or Vomiting Pain: Pt. Denies Any Pain Peripheral Nerve Block: Patient did not receive a nerve block
[2021-07-23 12:30] VITALS: BP 121/72; PULSE 68; RESP 16; TEMPC 36.5; O2SAT 96
[2021-07-23 12:54] VITALS: BP 141/90; PULSE 75; RESP 16; TEMP 36.6; O2SAT 97
== END 2021-07-23 13:20 | disposition home or self-care (01) ==
PROVIDERS: PCP Nurse Practitioner; Visit Provider Surgery
PROC: 0DJD8ZZ Inspection of Lower Intestinal Tract, Via Natural or Artificial Opening Endoscopic (ICD-10-PCS; CPT 45378; principal; 2021-07-23 11:15)
DX: D01.3 Carcinoma in situ of anus and anal canal (principal); Z12.11 Encounter for screening for malignant neoplasm of colon; K57.30 Diverticulosis of large intestine without perforation or abscess without bleeding; K64.4 Residual hemorrhoidal skin tags; R15.2 Fecal urgency; R15.9 Full incontinence of feces; J44.9 Chronic obstructive pulmonary disease, unspecified; Z90.49 Acquired absence of other specified parts of digestive tract; Z98.0 Intestinal bypass and anastomosis status
CPT/HCPCS: 45100; G0121; 88305

== ENCOUNTER → 2021-08-05 14:29 | Outpatient (BNVA) | payer MEDICARE, SELFPAY | PROVIDERS: PCP Nurse Practitioner; Referring Provider Nurse Practitioner; Visit Provider Surgery | DX: Z48.815 Encounter for surgical aftercare following surgery on the digestive system (principal); R85.613 High grade squamous intraepithelial lesion on cytologic smear of anus (HGSIL); J44.9 Chronic obstructive pulmonary disease, unspecified; F17.210 Nicotine dependence, cigarettes, uncomplicated; E78.5 Hyperlipidemia, unspecified | CPT/HCPCS: 99212 ==

== ENCOUNTER 2021-09-19 11:18 | Emergency (ER) | payer MEDICARE, SELFPAY ==
[2021-09-19 11:45] VITALS: BP 137/90; PULSE 82; RESP 22; TEMP 36.8; O2SAT 96
--- NOTE | 2021-09-19 12:00 | DI.RAD_ITS ---
Exam(s) XR ANKLE RT COMPLETE EXAM: XR ANKLE RT COMPLETE CLINICAL HISTORY: metal shelves fell on foot, ankle swelling, r/o fx. TECHNIQUE: 2D digital imaging was performed. COMPARISON: No exams were available for comparison FINDINGS: BONES: No acute fracture is present. No bony destructive lesion is seen. JOINTS: The ankle mortise is normally aligned. SOFT TISSUE: Soft tissue swelling IMPRESSION: Soft tissue swelling DATA REPOSITORY: RADIATION DOSE DELIVERED:
--- NOTE | 2021-09-19 12:00 | DI.RAD_ITS ---
Exam(s) XR FOOT RT COMPLETE EXAM: XR FOOT RT COMPLETE CLINICAL HISTORY: metal shelves fell on foot, r/o fx. TECHNIQUE: 2D digital imaging was performed. COMPARISON: CR XR FOOT RT COMPLETE from 11/06/2019 FINDINGS: BONES: No acute fracture is present. No bony destructive lesion is seen. JOINTS: No dislocation present. SOFT TISSUE: Swelling around metatarsal region. IMPRESSION: Soft tissue swelling. No visible fracture. DATA REPOSITORY: RADIATION DOSE DELIVERED:
--- NOTE | 2021-09-19 12:13 | W.ED.GENAD ---
Discharge Plan Disposition Patient Disposition: HOME Condition: Stable Discharge Details Clinical Impression: Contusion of right foot Primary Care Provider: Griselda Serna ED Provider: Monica Lama Home Meds and New Rx's Prescriptions: Continued paroxetine HCl 20 mg tablet 20 mg PO DAILY Qty: 90 RF: 4 clonazepam 1 mg tablet 1 mg PO HS Qty: 30 RF: 5 acetaminophen [Tylenol] 325 MG tablet 325 mg PO PRN RF: 0 albuterol sulfate 2.5 mg/0.5 mL solution for nebulization 2.5 mg Inhalation Q6H PRN Qty: 30 RF: 4 benzonatate [Tessalon Perles] 100 mg capsule 100 mg PO TID PRN (Reason: cough) Qty: 30 RF: 1 ibuprofen 600 mg Tablet 600 mg PO RF: 0 montelukast [Singulair] 10 mg Tablet 10 mg PO DAILY RF: 0 Discharge Instructions Instructions: Foot Contusion (ED) Additional Instructions: Rest, ice, and elevate the affected area as much as possible. Alternate tylenol and motrin as needed and directed for pain. Follow-up with your primary care doctor in 1 week as needed. Return to the emergency department with any worsening or new concerning symptoms. Referrals: Srinivas Joyner MD [ [facility] STAFF PHYSICIAN] - Discharge Data Discharge Date/Time-TO BE ENTERED AT DEPARTURE: 09/19/21 14:18 Discharge Physician: Monica Lama Medical Decision Making 60-year-old female presents with right foot pain after a metal shelf dropped on her foot last night. She has tenderness and edema overlying the dorsal lateral foot. No tenderness or ecchymosis noted to ankle. No deformity. Neurovascularly intact. Patient referred for x-rays which were negative. She requested a walking boot which was placed to her right foot. She was given orthopedic follow-up information. Advised to follow up with the primary care doctor for re-evaluation as needed. Usual and customary return precautions given prior to discharge. Medical Records Medical records reviewed: Yes I reviewed the patient's medical records. Imaging Data Radiologic Study: Radiologist's impression: XR Right Ankle Exam date and time: 09/19/2021 12:15 PM Age: 61 years old Clinical indication: Other: Metal shelves fell on foot, ankle swelling R/O FX TECHNIQUE: Imaging protocol: XR Right ankle. Views: 3 or more views. COMPARISON: CR XR FOOT RT COMPLETE 11/06/2019 1:45 PM FINDINGS: Bones/joints: No acute or suspicious osseous abnormalities. No articular abnormalities. Soft tissues: Soft tissue swelling over the lateral malleolus. IMPRESSION: No evidence of acute osseous injury. XR Right Foot Exam date and time: 09/19/2021 12:15 PM Age: 61 years old Clinical indication: Other: Metal shelves fell on foot, ankle swelling R/O FX TECHNIQUE: Imaging protocol: XR Right foot. Views: 3 or more views. COMPARISON: CR XR FOOT RT COMPLETE 11/06/2019 1:45 PM FINDINGS: Bones/joints: No acute or suspicious osseous abnormalities. No articular abnormalities. Stable 6 mm sclerotic focus in the base of the 5th metatarsal, which may represent a bone island. Soft tissues: Normal. IMPRESSION: No evidence of acute osseous injury. HPI General Mode of arrival: ambulatory. Date/Time Provider Initiated Documentation: 09/19/21 11:38. Limitations to Documentation: no limitations. Information obtained by: patient. HPI Narrative: Patient is a 61-year-old female presents the ED with a complaint of right foot pain after a metal shelf dropped on her foot last night. She states she has been taking Tylenol and ibuprofen with some relief. She denies any significant pain in her right ankle and states the pain is mainly on the top of her foot. Related Data Home Medications Medication Instructions Recorded Confirmed acetaminophen [Tylenol] 325 mg PO PRN tab-cap 09/26/16 07/21/21 paroxetine HCl 20 mg tablet 20 mg PO DAILY #90 tab-cap 09/22/20 09/19/21 albuterol sulfate 2.5 mg/0.5 mL 2.5 mg INHALATION Q6H PRN #30 ea 02/18/21 09/19/21 solution for nebulization benzonatate 100 mg capsule 100 mg PO TID PRN #30 cap 02/25/21 09/19/21 clonazepam 1 mg tablet 1 mg PO HS #30 tab-cap 03/23/21 09/19/21 montelukast [Singulair] 10 mg PO DAILY 07/23/21 09/19/21 ibuprofen 600 mg PO 09/19/21 Previous Rx's Medication Instructions Recorded paroxetine HCl 20 mg tablet 20 mg PO DAILY #90 tab-cap 09/22/20 albuterol sulfate 2.5 mg/0.5 mL 2.5 mg INHALATION Q6H PRN #30 ea 02/18/21 solution for nebulization benzonatate 100 mg capsule 100 mg PO TID PRN #30 cap 02/25/21 clonazepam 1 mg tablet 1 mg PO HS #30 tab-cap 03/23/21 Allergies Allergy/AdvReac Type Severity Reaction Status Date / Time pneumococcal vaccine Allergy Severe [place] like Verified 09/19/21 11:50 she was floating away. bacitracin Allergy Intermediate Hives Verified 09/19/21 11:50 latex Allergy Intermediate Hives Verified 09/19/21 11:50 neomycin Allergy Intermediate Hives Verified 09/19/21 11:50 polymyxin B Allergy Intermediate Hives Verified 09/19/21 11:50 varenicline Allergy Intermediate Hives Verified 09/19/21 11:50 azithromycin AdvReac Intermediate Malaise, Verified 09/19/21 11:50 stomach discomfort trazodone AdvReac Intermediate Headache Verified 09/19/21 11:50 General Stated Complaint: Orthopedic HARDIK: 4 Review of Systems All systems reviewed & are unremarkable except as noted in HPI and below PFSH Medical History (Updated 09/19/21 @ 13:54 by Monica Lama DO) Abnormal cervical Papanicolaou smear (04/26/05) Cochlear implant in place Dystonia of foot (10/06/17) Epilepsy H/O; 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 AFB culture Movement disorder post back injury Nicotine use disorder Substance abuse URI (upper respiratory infection) Surgical History (Updated 08/05/21 @ 06:47 by Magi Cates RN) Adenoidectomy (~2006) Bilateral salpingectomy with oophorectomy Cervical Procedure (~06/2005) COLPOSCOPY Cholecystectomy (~2000) Colectomy Dilation and curettage (12/08/10) Endometrial Biopsy (~05/2005) History of bilateral oophorectomy History of colonoscopy (~07/23/21) History of gynecological procedure History of hysteroscopy History of myringotomy Hx of tonsillectomy HYSTERSCOPY (12/08/10) [facility]: 1. FRAGMENTS OF BENIGN POLYPOID INACTIVE ENDOMETRIUM WITH FOCAL TUBAL METAPLASIA. 2. FRAGMENT OF CERVICAL SQUAMOUS MUCOSA AND ENDOCERVICAL GLANDS WITH NO SPECIFIC HISTOPATHOLOGIC FEATURES. Endometrial Biopsy, 12/08/10 [facility]; 1.BENIGN POLYPOID INACTIVE ENDOMETRIUM WITH FOCAL TUBAL METAPLASIA. Myringotomy w/ PE (pressure equalizing) tubes X 2 Cochlear implant Oophrectomy, Both (~1999) Denies having a hysterectomy. States she had tubal ligations. Family History (Updated 03/08/21 @ 13:50 by Roxy Ramires NP) Mother Essential hypertension Dementia Breast cancer Father Prostate cancer Bone cancer Brother No problems noted. Maternal Grandfather No problems noted. Paternal Grandfather No problems noted. Maternal Grandmother No problems noted. Paternal Grandmother Dementia Daughter Diabetes Essential hypertension Asthma Hyperlipidemia Daughter , age 38 Depression Substance abuse Social History Smoking/Tobacco Use Status: Current every day Tobacco Type: cigarettes Smoking packs per day: 0.5 Smoking cigarettes per day: 10.0 Quit status: has quit before Smoking risk assessment performed?: Yes Alcohol Intake: former Drug use: Never Substance use type: does not use Caregiver/Support person: No Household members: spouse, children and other Details: Grandchildren Housing: house Communication Needs: None Do you need help understanding health information?: Never Pets and animals: Yes Sexually active: No Do you think of yourself as: straight/heterosexual Current gender identity: female What is your relationship status?: How often do you talk on the phone with friends or family?: once per week How often do you get together with friends or relatives?: never How often do you attend scientologist or baptism services?: decline to answer Do you belong to any clubs or organized social groups?: no Panel score (0-1 are the most socially isolated patients): 1 What type of physical activity do you participate in: none Frequency: does not exercise Katlyn/Zoroastrianism: None Special katlyn needs: No Seatbelt use: always Drive intox or ride w/intox otr company truck driver: No Do you feel safe at home: Yes Do you feel safe in your relationship?: Yes Victim of physical abuse: No Victim of emotional abuse: No Victim of sexual abuse: No Would you like helpful sources: No Female Reproductive History Menstrual Menopause type: natural Exam Const General: cooperative, healthy appearing and no acute distress HENMT Head: normal to inspection Mouth: oral mucosae normal Eyes General: appearance normal, both eyes and all related structures Neck Neck: normal visual inspection Resp Effort & Inspection: normal respiratory effort and able to speak in complete sentences Cardio Rate: regular rate Skin General skin exam: no rashes or lesions noted Neuro General: patient alert, patient awake and patient oriented x3 Motor: muscle tone normal throughout Extrem Ankle/foot/toe images: 1. Tenderness to palpation and edema to right dorsal lateral mid and distal foot. Other: Right DP/PT pulses intact. No tenderness tp palpation to right medial or lateral malleolus. No deformity to ankle or foot noted. No tenderness to palpation to proximal leg. Psych Appearance: grossly normal Affect: normal affect Course Vital Signs Vital signs: Vital Signs Temperature 98.2 F 09/19/21 11:45 Pulse 82 09/19/21 11:45 Respiratory Rate 22 09/19/21 11:45 Blood Pressure 137/90 09/19/21 11:45 Pulse Oximetry 96 09/19/21 11:45 Temperature 98.2 F 09/19/21 11:45 Temperature Source Tympanic 09/19/21 11:45 Pulse 82 09/19/21 11:45 Respiratory Rate 22 09/19/21 11:45 Respiratory Effort 09/19/21 11:53 Blood Pressure 137/90 09/19/21 11:45 Pulse Oximetry 96 09/19/21 11:45 Oxygen Delivery Method Room Air 09/19/21 11:45 Oxygen Flow Rate 0 09/19/21 11:45 Pain Level 0 09/19/21 12:01
--- NOTE | 2021-09-19 13:32 | DI.VRAD_ITS ---
PROCEDURE INFORMATION: Exam: XR Right Foot Exam date and time: 09/19/2021 12:15 PM Age: 61 years old Clinical indication: Other: Metal shelves fell on foot, ankle swelling R/O FX TECHNIQUE: Imaging protocol: XR Right foot. Views: 3 or more views. COMPARISON: CR XR FOOT RT COMPLETE 11/06/2019 1:45 PM FINDINGS: Bones/joints: No acute or suspicious osseous abnormalities. No articular abnormalities. Stable 6 mm sclerotic focus in the base of the 5th metatarsal, which may represent a bone island. Soft tissues: Normal. IMPRESSION: No evidence of acute osseous injury. Dictated and Authenticated by: Adina Leung MD. Ordering:ALICIA Anderson MD
--- NOTE | 2021-09-19 13:33 | DI.VRAD_ITS ---
PROCEDURE INFORMATION: Exam: XR Right Ankle Exam date and time: 09/19/2021 12:15 PM Age: 61 years old Clinical indication: Other: Metal shelves fell on foot, ankle swelling R/O FX TECHNIQUE: Imaging protocol: XR Right ankle. Views: 3 or more views. COMPARISON: CR XR FOOT RT COMPLETE 11/06/2019 1:45 PM FINDINGS: Bones/joints: No acute or suspicious osseous abnormalities. No articular abnormalities. Soft tissues: Soft tissue swelling over the lateral malleolus. IMPRESSION: No evidence of acute osseous injury. Dictated and Authenticated by: Adina Leung MD. Ordering:ALICIA Anderson MD
[2021-09-19 14:00] VITALS: BP 136/78; PULSE 79; RESP 18; O2SAT 93
== END 2021-09-19 14:18 | disposition home or self-care (01) ==
PROVIDERS: Emergency Provider Physician Assistant; PCP Nurse Practitioner
DX: S90.31XA Contusion of right foot, initial encounter (principal); W20.8XXA Other cause of strike by thrown, projected or falling object, initial encounter
CPT/HCPCS: 29515; 99284; 73610; 73630; 99283

== ENCOUNTER 2021-10-15 18:17 | Outpatient (REF) | payer MEDICARE, SELFPAY ==
[2021-10-17 14:21] LABS: COVID-19 RT-PCR UVMMC Result Negative (Negative)
== END 2021-10-15 18:18 | disposition home or self-care (01) ==
LOC: LBN 18:17
PROVIDERS: PCP Nurse Practitioner; Visit Provider Nurse Practitioner
DX: Z20.822 Contact with and (suspected) exposure to COVID-19 (principal); R05.9 Cough, unspecified; R51.9 Headache, unspecified
CPT/HCPCS: U0003; U0005

== ENCOUNTER 2022-01-03 16:36 | Outpatient (REF) | payer MEDICARE, SELFPAY ==
[2022-01-05 14:33] LABS: COVID-19 RT-PCR UVMMC Result Negative (Negative)
== END 2022-01-03 16:37 | disposition home or self-care (01) ==
LOC: LBN 16:36
PROVIDERS: PCP Nurse Practitioner; Visit Provider Family Medicine
DX: J06.9 Acute upper respiratory infection, unspecified (principal); Z20.822 Contact with and (suspected) exposure to COVID-19
CPT/HCPCS: U0003; U0005

== ENCOUNTER 2022-03-18 02:01 | Outpatient (CLI) | payer MEDICARE, SELFPAY | END 2022-03-18 02:02 | disposition home or self-care (01) | LOC: LBO 02:01 | PROVIDERS: PCP Nurse Practitioner; Visit Provider Nurse Practitioner ==

== ENCOUNTER 2022-05-18 02:07 | Outpatient (CLI) | payer MEDICARE, SELFPAY ==
[2022-05-18 12:50] LABS: Anion Gap 4.5 mmol/L (3-11); BUN 15 mg/dL (7-18); CO2 32.5 mmol/L (21.0-32.0); CREATININE 0.8 mg/dL (0.55-1.02); Calcium 8.5 mg/dL (8.5-10.1); Chloride 105 mmol/L (98-107); Glucose 108 mg/dL (74-106); Potassium 4.7 mmol/L (3.5-5.1); Sodium 142 mmol/L (136-145)
[2022-05-18 12:54] LABS: Hemoglobin A1C 6.2 % (<5.7)
== END 2022-05-18 02:08 | disposition home or self-care (01) ==
LOC: LOS 02:07
PROVIDERS: PCP Nurse Practitioner; Visit Provider Nurse Practitioner
DX: R73.03 Prediabetes (principal); I10 Essential (primary) hypertension; E78.5 Hyperlipidemia, unspecified; R60.0 Localized edema
CPT/HCPCS: 36415; 80048; 83036

== ENCOUNTER → 2022-05-25 01:20 | Outpatient (CLI) | payer MEDICARE, SELFPAY ==
--- NOTE | 2022-05-25 07:15 | DI.MAMMO_ITS ---
Exam(s) MAMMO SCREENING EXAM: MAMMO SCREENING CLINICAL HISTORY: screening,Z12.39 TECHNIQUE: Mammograms were interpreted according to the usual protocol including computer analysis w [facility] CAD system, tomosynthesis and C-view imaging. COMPARISON: FINDINGS: The breasts are of moderate density with fairly symmetrical distribution of fibroglandular tissue. M ultiple nodular densities are noted bilaterally which appear stable in comparison with prior examinat ions including February 2021. No new mass or clumped microcalcification is seen in either breast. IMPRESSION: No specific evidence of malignancy at this time. Routine screening examinations are suggested at ye aby intervals due to the family history of breast carcinoma. BI-RADS Category 1 - Negative Breast Density - Category B - Scattered areas of fibroglandular density
--- NOTE | 2022-05-25 07:15 | DI.CTLCSR_ITS ---
Exam(s) CT CHEST LUNG CANCER SCREEN EXAM: CT CHEST LUNG CANCER SCREEN CLINICAL HISTORY: Screening for lung cancer,CURRENT SMOKER, F17.210 TECHNIQUE: COMPARISON: CR XR PORTABLE CHEST AP from 02/05/2021 FINDINGS: Noncontrast chest CT was performed utilizing low-dose lung cancer screening protocol. Images obtained through the upper abdomen show prior cholecystectomy and unremarkable appearance of v isualized portions of the liver, spleen, pancreas, adrenals, kidneys. No mediastinal or hilar adenopathy. Tracheobronchial tree appears intact. No pleural effusion. There is a pleural-based triangular radiodensity associated with the interlobar fissure on left. Thi s may represent an area of atelectasis or scarring. However this does have a somewhat nodular appear ance and follow-up images are recommended 3 months. Noncalcified upper lobe nodules are seen bilaterally, including a 5 millimeter in diameter left upper lobe nodule and a Cathy fissural 8 millimeter right pulmonary nodule. Calcified nodules are also see n bilaterally. IMPRESSION: Lung RADS Cat 4A - Suspicious: Findings for which additional diagnostic testing and/or tissue sampli ng recommended RADIATION DOSE DELIVERED: 100.46mGy.cm Total DLP !Error CTDIvol RADIATION OPTIMIZATION: All CT scans at this facility use at least one of these dose optimization te chniques: automated exposure control; mA and/or kV adjustment per patient size (includes targeted exa ms where dose is matched to clinical indication); or iterative reconstruction.
== END ==
PROVIDERS: PCP Nurse Practitioner; Visit Provider Nurse Practitioner
DX: Z12.31 Encounter for screening mammogram for malignant neoplasm of breast (principal); Z12.2 Encounter for screening for malignant neoplasm of respiratory organs; F17.210 Nicotine dependence, cigarettes, uncomplicated
CPT/HCPCS: 71271; 77063; 77067

== ENCOUNTER → 2022-07-04 02:59 | Outpatient (CLI) | payer MEDICARE, SELFPAY ==
--- NOTE | 2022-07-04 13:58 | DI.US_ITS ---
APPROVED REPORT EXAM: Comprehensive 2D, Doppler, and color-flow Echocardiogram Patient Location: Out-Patient Distribution Clerk: Gabbi Fountain RDCS (AE) Indications: Edema Other Information Study Quality: Adequate Conclusion Normal left ventricular size and systolic function. Estimated ejection fraction is 55 to 60%. Wall motion is normal Normal right ventricular size and systolic function Both atria are normal in size Aortic valve is trileaflet and mildly sclerotic without stenosis or regurgitation There are no additional structural or hemodynamically significant valvular abnormalities Wall motion Left Ventricle The left ventricle is normal size. The left ventricular systolic function is normal. The left ventric ular ejection fraction is within the normal range. Mild concentric left ventricular hypertrophy. Ther e is normal LV segmental wall motion. There is no ventricular septal defect visualized. LVEF is 55-60 %. Right Ventricle The right ventricle is normal size. The right ventricular systolic function is normal. Atria The left atrium size is normal. The right atrium size is normal. The interatrial septum is intact wit h no evidence for an atrial septal defect. Aortic Valve The Aortic valve is mildly sclerotic. Aortic valve is trileaflet. There is no aortic valvular stenosi s. No aortic regurgitation is present. Mitral Valve The mitral valve is normal in structure. No evidence of mitral valve stenosis. Trace mitral regurgita tion. Tricuspid Valve The tricuspid valve is normal in structure. There is no tricuspid valve stenosis. Trace tricuspid reg urgitation. Unable to assess PA pressure. Pulmonic Valve The pulmonary valve is normal in structure. There is no pulmonic valvular stenosis. There is no pulmo denis valvular regurgitation. Great Vessels The aortic root is normal in size. The ascending aorta is normal in size. Aortic arch is normal in ca liber. IVC is normal in size and collapses >50% with inspiration. Pericardium There is no pericardial effusion. 2D Dimensions IVSD d PLAX 1.12 cm F: 0.6-1.0 LV Vol A2C d MOD 86.6 mL LVPW d PLAX 1.11 cm F: 0.6 - 1.0 LV Vol A4C d MOD 68.9 mL LVID d PLAX 4.42 cm F: 3.8 - 5.2 LA vol/ BSA A4C s A-L 11.8 mL/m2 LVDs 3.10 cm F: 2.2 - 3.5 LA Area A4C s MOD 11.97 cm2 Ao Root d 2.89 cm F: 2.7 - 3.3 LV EF A4C MOD 57.7 % Ao Asc Diam d 2.96 cm F: 2.3 - 3.1 LV EF A2C MOD 56.7 % LV EF Teichholz 56.6 % LV EF Biplane MOD 58.4 % LVEF (Daily's) 58.36 % F: 54 - 74 SV 47.32 mL LV Volume 60.05 mL F: 46 - 106 SV Index 22.77 mL/m2 LV Volume Index 28.87 mL/m2 F: 29 - 61 LV Vol Biplane MOD 81.1 mL FS 29.40 % M-Mode TAPSE 2.02 cm (M/F) >1.7 LV Diastology MV E' medial 0.098 (>0.07 m/s) E/A Ratio 0.8 LV E/e MED 7.20 (<14) MV E Vmax 0.71 (0.4-1.3 m/s) MV E' lateral 0.103 (>0.1 m/s) MV A Vmax 0.90 (0.4-1.3 m/s) LV E/e LAT 6.85 (<14) MV E/A Ratio 0.77 MV E/E' medial 7.22 MV E/E' lateral 6.88 Aortic Valve LVOT Area 3.72 cm2 AoV Area Vmax 2.66 cm2 LVOT Vmax 0.97 m/s AoV Area/ BSA (Vmax) 1.28 cm2/m2 LVOT Mean Joel. 0.62 m/s VISHAL Mean Joel. 2.39 cm2 LVOT Peak Grad 3.8 mmHg VISHAL Mean Joel. Index 1.15 cm2/m2 LVOT Mean Grad 1.8 mmHg LVOT VTI 0.191 m LVOT Diam s 2.15 cm AoV Vmax 1.36 m/s Velocity Ratio 0.71 AoV Mean Joel. 0.97 m/s AoV Peak Grad 7.4 mmHg LVOT SV 70.88 mL AoV Mean Grad 4.2 mmHg AoV VTI 0.240 m AoV Area VTI 2.95 cm2 AoV Area/ BSA (VTI) 1.42 cm/m2 Mitral Valve MV DT 206 (160-240 msec) MV PHT 60 msec MV Area PHT 3.69 cm2 MV VTI 0.272 m MV Area VTI 2.60 (4.0-6.0 cm2) Pulmonary Valve PV Vmax 1.18 (0.5-1.5 m/s) RVOT Peak Gr. 5.06 mmHg PV Peak Grad 5.6 mmHg RVOT Mean Gr. 2.50 mmHg PV Mean Grad 3.1 mmHg RVOT VTI 0.190 m PV VTI 0.218 m RVOT Vmax 1.12 m/s
== END ==
PROVIDERS: PCP Nurse Practitioner; Visit Provider Nurse Practitioner
DX: I35.8 Other nonrheumatic aortic valve disorders (principal); R60.0 Localized edema
CPT/HCPCS: 93306

== ENCOUNTER 2022-08-08 14:02 | Outpatient (REF) | payer MEDICARE, SELFPAY ==
--- NOTE | 2022-08-08 13:30 | PAPFT_PTH ---
PATIENT: Coni Dennison LOC: [facility] U#:[id number] AGE/SX: 62/F ROOM: RE08/08/[address]: Adriana Harrison NP : 1960 BED: DIS: 08/08/2022 SPEC #: [id number] RECD: 08/08/22 17:50 STATUS: JUANITA REAdrian #: [id number] TARAN: 08/08/22 13:[address]: Hunter SHERIFF,Adriana DEPT: [facility] Cytology RECD BY: Brooklyn Mark ENTERED: 08/08/22 17:51 SP TYPE: PAPFT OTHR DR: Griselda Serna, PhD [employer] [facility] Tissues: 1 - CX/ENDOCX FOR PAP SMEARS Procedures: PAP THIN PREP/[facility] Screening HPV DNA PROBE Comments: [id number]
== END 2022-08-08 14:03 | disposition home or self-care (01) ==
LOC: LBN 14:02
PROVIDERS: PCP Nurse Practitioner; Visit Provider Nurse Practitioner Women's Health
DX: Z01.419 Encounter for gynecological examination (general) (routine) without abnormal findings (principal); Z11.51 Encounter for screening for human papillomavirus (HPV)
CPT/HCPCS: 88142; 87624

== ENCOUNTER 2022-09-07 11:58 | Outpatient (CLI) | payer MEDICARE, SELFPAY ==
[2022-09-07 12:47] LABS: Abs Immature Grans 0.03 10^3/uL (0.0-0.06); Absolute Basophil Count 0.05 10^3/uL (0.0-0.2); Absolute Eosinophil Count 0.35 10^3/uL (0.0-0.7); Absolute Lymphocyte Count 1.53 10^3/uL (1.2-3.4); Absolute Monocyte Count 0.66 10^3/uL (0.1-0.8); Basophils % 0.6; Eosinophils % 4.2; HCT 37.2 % (36.0-46.0); Immature Grans % 0.4; Lymphocytes % 18.2; MCH 30.2 pg (27.0-33.0); MCHC 32.3 % (32.0-36.0); MCV 94 fL (80-95); Monocytes % 7.8; Neutrophils % 68.8; Platelet Count 389 10^3/uL (130-400); RBC 3.97 10^6/uL (3.93-5.22); RDW 12.4 % (11.7-14.6); RDW-SD 42.5 fL; WBC 8.42 10^3/uL (4.4-10.8)
[2022-09-07 12:49] LABS: ESR 33 mm/hr (0-30)
[2022-09-07 12:54] LABS: Uric Acid 5.2 mg/dL (2.6-6.0)
[2022-09-07 13:05] LABS: Hemoglobin A1C 6.2 % (<5.7)
== END 2022-09-07 11:59 | disposition home or self-care (01) ==
LOC: LOS 12:01
PROVIDERS: PCP Family Medicine; Visit Provider Family Medicine
DX: D64.9 Anemia, unspecified (principal); R41.89 Other symptoms and signs involving cognitive functions and awareness; M10.9 Gout, unspecified; R73.9 Hyperglycemia, unspecified; M25.50 Pain in unspecified joint
CPT/HCPCS: 36415; 85652; 83036; 84550; 85025; 86038; 86140; 86431

== ENCOUNTER 2022-09-13 03:47 | Outpatient (CLI) | payer MEDICARE, SELFPAY ==
[2022-09-13 17:33] LABS: Rheumatoid Factor 279.4 IU/mL (<12.0)
[2022-09-14 09:38] LABS: Lab Add On Test DONE
[2022-09-14 14:12] LABS: ANA Interpretation Negative (Negative)
[2022-09-15 10:10] LABS: Cyclic Citrullinated Peptide 5.7 U/mL (<5.0)
== END 2022-09-13 03:48 | disposition home or self-care (01) ==
LOC: LOS 03:47
PROVIDERS: PCP Family Medicine; Visit Provider Family Medicine
DX: M54.12 Radiculopathy, cervical region; M25.541 Pain in joints of right hand; M25.542 Pain in joints of left hand; M25.59 Pain in other specified joint; R76.8 Other specified abnormal immunological findings in serum
CPT/HCPCS: 36415; 86200; 86038; 86431

== ENCOUNTER 2022-10-06 11:30 | Outpatient (RCR) | payer MEDICARE, SELFPAY ==
--- NOTE | 2022-10-06 11:30 | HOLTER_ITS ---
APPROVED REPORT Conclusion This is a 48-hour Holter monitor ordered for palpitations Rhythm throughout was sinus with an average heart rate of 76. Minimum was 61, maximum 127 There were occasional ventricular ectopic beats, rare couplets, no ventricular tachycardia There were rare atrial premature beats There was no atrial fibrillation, no supraventricular tachycardia, no pauses greater than 3 seconds o r high-grade AV block No patient symptoms were reported
== END 2022-10-26 23:59 | disposition home or self-care (01) ==
LOC: CARDOPNVT 11:30
PROVIDERS: PCP Family Medicine; Visit Provider Family Medicine
DX: R00.2 Palpitations (principal); R42 Dizziness and giddiness
CPT/HCPCS: 93227; 93225; 93226

== ENCOUNTER 2022-12-12 15:50 | Outpatient (CLI) | payer MEDICARE, SELFPAY ==
[2022-12-12 15:59] LABS: TSH (W/Ref FT4) 3.61 uIU/mL (0.36-3.74)
== END 2022-12-12 15:51 | disposition home or self-care (01) ==
LOC: LBO 15:51
PROVIDERS: PCP Family Medicine; Visit Provider Family Medicine
DX: E03.9 Hypothyroidism, unspecified (principal)
CPT/HCPCS: 36415; 84443

== ENCOUNTER 2022-12-26 02:19 | Outpatient (CLI) | payer MEDICARE, SELFPAY ==
--- NOTE | 2022-12-26 07:45 | DI.RAD_ITS ---
Exam(s) XR LUMBAR SPINE COMPLETE EXAM: XR LUMBAR SPINE COMPLETE CLINICAL HISTORY: back pain,m54.9,m54.50. TECHNIQUE: 2D digital imaging was performed of the lumbar spine. Five images were obtained. AP, la teral, right oblique, left oblique and L5-S1 spot views were obtained. COMPARISON: CR XR LUMBAR SPINE COMPLETE from 12/30/2019 FINDINGS: BONES: No fracture or destructive lesion. Vertebral bodies are unremarkable. No facet hypertrophy john ntified. Incidental note is made of a limbus vertebra at L5. DISKS: There is mild narrowing of the disc space at L1-L2 and L5-S1. There is a vacuum disc at L5-S1 . ALIGNMENT: There is grade 1 spondylolisthesis of L5 on S1. There is L5 spondylolysis. SOFT TISSUE: Atherosclerosis is present. Surgical clips are seen in the abdomen. IMPRESSION: 1. Mild degenerative changes in the lumbar spine. 2. L5 spondylolysis and stable grade 1 spondylolisthesis of L5 on S1. DATA REPOSITORY: RADIATION DOSE DELIVERED:
--- NOTE | 2022-12-26 07:45 | DI.RAD_ITS ---
Exam(s) XR HIP PELVIS ADULT BL EXAM: XR HIP PELVIS ADULT BL CLINICAL HISTORY: low back pain,m54.9,m54.50. TECHNIQUE: 2D digital imaging was performed of the pelvis and bilateral hips. Three images were obt ained. AP pelvis and lateral views of both hips were obtained. COMPARISON: No exams were available for comparison FINDINGS: BONES: No acute fracture is present. No bony destructive lesion is seen. JOINTS: No dislocation present. SOFT TISSUE: Normal. IMPRESSION: Unrmarkable radiographs of bilat hips. Unremarkable radiographs of the pelvis DATA REPOSITORY: RADIATION DOSE DELIVERED:
== END 2022-12-26 02:39 ==
LOC: DI 02:19
PROVIDERS: PCP Family Medicine; Visit Provider Family Medicine
DX: M54.59 Other low back pain (principal); M25.551 Pain in right hip; M25.552 Pain in left hip; M51.37 Other intervertebral disc degeneration, lumbosacral region; M43.17 Spondylolisthesis, lumbosacral region
CPT/HCPCS: 73521; 72110

== ENCOUNTER 2023-01-19 11:16 | Outpatient (CLI) | payer MEDICARE, SELFPAY ==
--- NOTE | 2023-01-19 | DI.CT_ITS ---
Exam(s) CT CHEST WO EXAM: CT CHEST WO CLINICAL HISTORY: LUNG NODULE, R91.1, CIGARETTE SMOKER, F17.210, COPD. TECHNIQUE: Imaging protocol: Axial computed tomography images were obtained and coronal and sagittal reformatted images were created and reviewed. COMPARISON: CT CT CHEST LUNG CANCER SCREEN from 05/25/2022 FINDINGS: Tracheobronchial tree: Patent where visualized. Pulmonary parenchyma: No consolidation or dominant measurable mass. Emphysematous changes are present in the lungs. The right pulmonary nodule measures 1.3 x 0.8 cm. This compares to 1.2 x 0.7 cm. Th ere is a stable 5.3 mm nodule adjacent to the left major fissure in the left upper lobe. Calcified g ranuloma are present in the lungs. There is a stable triangular area of scarring in the lingula. No focal consolidating infiltrates are seen. No new pulmonary nodules are present. Mediastinum and Jackie: No dominant adenopathy or fluid collection. The esophagus is unremarkable.Calci fied lymph nodes are seen in the left hilum. Thyroid gland: Unremarkable. Pleura: No effusion or pneumothorax. Heart: The heart is not dilated. No coronary artery calcifications are seen. No pericardial effusion. Aorta: Thoracic aorta non-dilated. Atherosclerosis is present. Upper abdomen: Status post cholecystectomy. There is diverticulosis of the colon but no evidence of acute diverticulitis. Lymph nodes: Within normal limits. Soft tissues: There is a lipoma again seen along the left chest wall. Bones:Within normal limits for the patient's age. IMPRESSION: Stable pulmonary nodules. Lung RADS Cat 2 - Benign Appearance / Behavior: Nodules with a very low likelihood of becoming a clin ically active cancer due to size or lack of growth RADIATION DOSE DELIVERED: 820.3mGy.cm Total DLP 820.3mGy.cm Total DLP DATA REPOSITORY: All CT scans at this facility are submitted to the National Radiology Data Registry (NRDR) Dose Index Registry (DIR) with the [employer] (ACR). RADIATION OPTIMIZATION: All CT scans at this facility use at least one of these dose optimization te chniques: automated exposure control; mA and/or kV adjustment per patient size (includes targeted exa ms where dose is matched to clinical indication); or iterative reconstruction.
== END 2023-01-19 11:36 ==
LOC: DI 11:17
PROVIDERS: PCP Family Medicine; Visit Provider Internal Medicine Pulmonary Disease
DX: R91.1 Solitary pulmonary nodule (principal); J44.9 Chronic obstructive pulmonary disease, unspecified; F17.210 Nicotine dependence, cigarettes, uncomplicated; J98.4 Other disorders of lung
CPT/HCPCS: 71250

== ENCOUNTER 2023-01-20 00:43 | Outpatient (CLI) | payer MEDICARE, SELFPAY ==
--- NOTE | 2023-01-20 07:45 | DI.MRI_ITS ---
Exam(s) MR LUMBAR SPINE WO EXAM: MR LUMBAR SPINE WO CLINICAL HISTORY: low back pain,M54.50. TECHNIQUE: Multiplanar multisequence MRI of the Lumbar spine was performed. COMPARISON: MR MRI - LUMBAR SPINE WO CONTRAST from 04/11/2017 CR XR LUMBAR SPINE COMPLETE from 12/30/2019 CR XR LUMBAR SPINE COMPLETE from 12/26/2022 FINDINGS: Bones: The last intervertebral disc space is designated the L5/S1 level for the numbering purpose of this examination. The vertebral body heights are well maintained. Alignment is satisfactory. The ma rrow signal characteristics are unremarkable. Cord: The conus tip ends at the T12 level. It is of normal size and signal intensity. T12-L1: No disc herniations or bulges are present. No central spinal canal or neural foraminal stenos is. L1-2: No disc herniations or bulges are present. No central spinal canal or neural foraminal stenosis . L2-3: No disc herniations or bulges are present. No central spinal canal or neural foraminal stenosis . L3-4: Stable mild disc bulging eccentric toward the left.. No central spinal canal or neural foramin al stenosis. L4-5: Stable appearance of small central disc protrusion at L4-5 without visible nerve root impingeme nt. No central spinal canal or neural foraminal stenosis. L5-S1: Stable appearance of bilateral L5 spondylolysis and mild L5-S1 spondylolisthesis. Stable mild loss of disc height and mild disc bulging. Stable bilateral neural foraminal narrowing. No central spinal canal or neural foraminal stenosis. The visualized SI joints and sacrum are well maintained. Soft tissues: The paraspinal soft tissues are unremarkable. Diverticulosis incidentally noted. IMPRESSION: Stable appearance. No new findings.. DATA REPOSITORY:
== END 2023-01-20 01:03 ==
LOC: DI 00:43
PROVIDERS: PCP Family Medicine; Visit Provider Family Medicine
DX: M54.50 Low back pain, unspecified (principal)
CPT/HCPCS: 72148

== ENCOUNTER 2023-06-08 15:10 | Outpatient (CLI) | payer MEDICARE, SELFPAY ==
--- NOTE | 2023-06-08 15:00 | DI.RAD_ITS ---
Exam(s) XR CHEST 2V PA LATERAL EXAM: XR CHEST 2V PA LATERAL CLINICAL HISTORY: wheezing J44.9 COPD. TECHNIQUE: 2D digital imaging was performed. COMPARISON: CR XR PORTABLE CHEST AP from 02/05/[address] CHEST WO from 01/19/2023 FINDINGS: 2 views: Heart size is normal. The mediastinum is not widened. Lungs are clear. No infiltrates nor pleural effusions. IMPRESSION: No acute pulmonary findings. DATA REPOSITORY: RADIATION DOSE DELIVERED:
== END 2023-06-08 15:30 ==
LOC: DI 15:10
PROVIDERS: PCP Family Medicine; Visit Provider Physician Assistant Surgical
DX: J44.9 Chronic obstructive pulmonary disease, unspecified (principal)
CPT/HCPCS: 71046

== ENCOUNTER 2023-06-13 04:15 | Outpatient (CLI) | payer MEDICARE, SELFPAY ==
[2023-06-13 14:44] LABS: BE 7 mmol/L (-2-3); HCO3 31 mmol/L (22-26); pCO2 51 mmHg (35-45); pO2 79 mmHg (80-105); sO2 97 % (95-98); tCO2 28 mmol/L (23-27)
[2023-06-13 14:46] LABS: Site Right Radial
== END 2023-06-13 04:16 | disposition home or self-care (01) ==
LOC: RT 04:16
PROVIDERS: PCP Family Medicine; Visit Provider Physician Assistant Surgical
DX: J44.9 Chronic obstructive pulmonary disease, unspecified (principal)
CPT/HCPCS: 82805; 36600

== ENCOUNTER 2023-08-18 12:50 | Outpatient (REF) | payer MEDICARE, SELFPAY ==
[2023-08-21 11:48] LABS: Copper 24 Hr, U <5 mcg/24 h (9-71); Urine Volume 3000 mL
== END 2023-08-18 12:51 | disposition home or self-care (01) ==
LOC: LBN 12:50
PROVIDERS: PCP Family Medicine; Visit Provider Psychiatry & Neurology Neurology
DX: G25.5 Other chorea (principal); E83.09 Other disorders of copper metabolism
CPT/HCPCS: 81050; 82525

== ENCOUNTER → 2023-09-04 03:41 | Outpatient (CLI) | payer MEDICARE, SELFPAY ==
--- NOTE | 2023-09-04 08:00 | DI.DEXA_ITS ---
Exam(s) XR DEXA BONE DENSITY W/WO SOLIS EXAM: XR DEXA BONE DENSITY W/WO SOLIS CLINICAL HISTORY: screening FOR osteoporosis in postmenopausal woman ,z78.0 TECHNIQUE: [employer] Horizon C densitometer analysis of left hip, lumbar spine and left forearm. Lat eral survey image of the thoracic and lumbar spine. COMPARISON: No exams were available for comparison FINDINGS: Lateral view of the thoracic and lumbar spine shows no evidence of compression fractures. Bone mineral density measurements of the lumbar spine correspond to a total T-score of -1.4, in the osteopenic range. Bone mineral density measurements of the left hip correspond to a total T-score of -1.5. The femora l neck T-score is 22.4 from the osteopenic range.. Theleft forearm bone mineral density measurements correspond to a T-score of the distal 3rd of -0.1, in the normal range.. IMPRESSION: Osteopenia of the lumbar spine and left hip. Normal bone mineral density of the forearm.
== END ==
PROVIDERS: PCP Family Medicine; Visit Provider Family Medicine
DX: Z78.0 Asymptomatic menopausal state (principal); Z13.820 Encounter for screening for osteoporosis; M85.89 Other specified disorders of bone density and structure, multiple sites
CPT/HCPCS: 77080

== ENCOUNTER 2023-09-04 05:04 | Outpatient (CLI) | payer MEDICARE, SELFPAY ==
[2023-09-05 10:03] LABS: dsDNA Ab, IgG <12.3 IU/mL (<30.0)
[2023-09-05 11:54] LABS: SS-A Antibody 0.9 Units (<20.0); SS-B (La) Ab, IgG 14.4 Units (<20.0); Sm (Smith) Ab, IgG 2.3 Units (<20.0)
[2023-09-06 14:27] LABS: Scl 70 Antibodies, IgG <0.2 U
[2023-09-20 02:11] LABS: Anti-EJ Ab Negative (Negative); Anti-Jo-1 Ab <20 Units (<20); Anti-Ku Ab Negative (Negative); Anti-MDA-5 Ab (CADM-140) <20 Units (<20); Anti-Mi-2-Ab Negative (Negative); Anti-NXP-2 (P140) Ab <20 Units (<20); Anti-OJ Ab Negative (Negative); Anti-PL-12 Ab Negative (Negative); Anti-PL-7 Ab Negative (Negative); Anti-PM/Scl-100 Ab <20 Units (<20); Anti-SRP Ab Negative (Negative); Anti-SS-A 52kD Ab, IgG <20 Units (<20); Anti-TIF-1gamma Ab <20 Units (<20); Anti-U1 RNP Ab <20 Units (<20); Anti-U2 RNP Ab Negative (Negative); Anti-U3 RNP (Fibrillarin) Negative (Negative)
== END 2023-09-04 05:05 | disposition home or self-care (01) ==
LOC: LBO 05:04
PROVIDERS: PCP Family Medicine; Visit Provider Physician Assistant Surgical
DX: R76.8 Other specified abnormal immunological findings in serum (principal)
CPT/HCPCS: 36415; 83516; 86235; 86225

== ENCOUNTER 2023-10-27 18:33 | Outpatient (REF) | payer MEDICARE, SELFPAY ==
[2023-10-27 13:29] LABS: Abs Immature Grans 0.05 10^3/uL (0.0-0.06); Absolute Basophil Count 0.05 10^3/uL (0.0-0.2); Absolute Lymphocyte Count 1.72 10^3/uL (1.2-3.4); Absolute Monocyte Count 0.91 10^3/uL (0.1-0.8); Basophils % 0.4; Eosinophils % 2.4; HCT 41.2 % (36.0-46.0); Immature Grans % 0.4; Lymphocytes % 13.6; MCH 29.6 pg (27.0-33.0); MCHC 31.6 % (32.0-36.0); MCV 94 fL (80-95); Monocytes % 7.2; RBC 4.39 10^6/uL (3.93-5.22); RDW 13.1 % (11.7-14.6); RDW-SD 44.8 fL; WBC 12.63 10^3/uL (4.4-10.8)
[2023-10-27 13:40] LABS: Anion Gap 4.8 mmol/L (3-11); BUN 10 mg/dL (7-18); CO2 36.2 mmol/L (21.0-32.0); CREATININE 0.8 mg/dL (0.55-1.02); Chloride 101 mmol/L (98-107); Estimated GFR 81.72 (mL/min/1.73m2); Glucose 252 mg/dL (74-106); Potassium 4.2 mmol/L (3.5-5.1); Sodium 142 mmol/L (136-145)
[2023-10-27 13:47] LABS: Diff Comment Diff Reviewed; RBC Morphology Normal
[2023-10-27 14:30] LABS: Lab Add On Test DONE
[2023-10-27 14:54] LABS: Hemoglobin A1C 7.4 % (<5.7)
== END 2023-10-27 18:34 | disposition home or self-care (01) ==
LOC: LBN 18:33
PROVIDERS: Nurse Practitioner Family; PCP Family Medicine
DX: I10 Essential (primary) hypertension (principal); R73.03 Prediabetes; J44.1 Chronic obstructive pulmonary disease with (acute) exacerbation; R53.83 Other fatigue
CPT/HCPCS: 80048; 83036; 85025

== ENCOUNTER 2023-11-08 13:38 | Outpatient (CLI) | payer MEDICARE, SELFPAY ==
--- NOTE | 2023-11-08 13:30 | RT.EKG_ITS ---
APPROVED REPORT Exam: Resting ECG Reason for Exam: COPD Patient Location: O HR:98 bpm ECG Measurements Heart Rate 98 AXIS AZ 150 P -34 QRSd 96 QRS -35 QT 360 T 53 QTc 460 Conclusion Sinus rhythm...normal P axis, V-rate 50- 99 Left axis deviation...QRS axis (-30,-90) Low voltage, precordial leads...precordial leads <1.0mV I have reviewed and interpreted ECG and agree with software generated interpretation.
== END 2023-11-08 13:39 | disposition home or self-care (01) ==
PROVIDERS: PCP Family Medicine; Visit Provider Nurse Practitioner Family
DX: R00.0 Tachycardia, unspecified (principal)
CPT/HCPCS: 93010

== ENCOUNTER 2023-11-15 12:04 | Outpatient (REF) | payer MEDICARE, SELFPAY ==
[2023-11-15 21:40] LABS: COMMENT (LAB VIEW ONLY) 20.19 mg/dL
== END 2023-11-15 12:05 | disposition home or self-care (01) ==
LOC: NCHCN 12:04
PROVIDERS: PCP Family Medicine; Visit Provider Family Medicine
DX: E11.9 Type 2 diabetes mellitus without complications (principal)
CPT/HCPCS: 82043; 82570

== ENCOUNTER 2024-01-16 16:03 | Outpatient (REF) | payer MEDICARE, SELFPAY ==
--- NOTE | 2024-01-16 15:15 | SKI_PTH ---
PATIENT: Coni Dennison LOC: [facility] U#:[id number] AGE/SX: 63/F ROOM: RE01/16/[address]: Dariel Ralph MD : 1960 BED: DIS: 01/16/2024 SPEC #: [id number] RECD: 01/16/24 18:17 STATUS: JUANITA REQ #: [id number] TARAN: 01/16/24 15:[address]: Dariel Ralph DEPT: Surgical Specimen RECD BY: Brooklyn Mark ENTERED: 01/16/24 18:17 SP TYPE: MARGARITA MCCARTHY DR: Thomas Jones MD Tissues: 1 - SKIN BIOPSY(SHAVE/PUNCH) Procedures: SKIN LEVEL 4 Comments: [id number]
== END 2024-01-16 16:04 | disposition home or self-care (01) ==
LOC: LBN 16:03
PROVIDERS: PCP Family Medicine; Visit Provider Otolaryngology
DX: B07.8 Other viral warts (principal); L98.8 Other specified disorders of the skin and subcutaneous tissue; H02.89 Other specified disorders of eyelid
CPT/HCPCS: 88305

== ENCOUNTER → 2024-02-21 12:51 | Outpatient (BNVA) | payer MEDICARE, SELFPAY | PROVIDERS: PCP Family Medicine; Referring Provider Family Medicine; Visit Provider Surgery | DX: R22.32 Localized swelling, mass and lump, left upper limb (principal); D17.22 Benign lipomatous neoplasm of skin and subcutaneous tissue of left arm | CPT/HCPCS: 20206; 76882 ==

== ENCOUNTER 2024-02-21 13:34 | Outpatient (REF) | payer MEDICARE, SELFPAY ==
--- NOTE | 2024-02-21 13:25 | SKI_PTH ---
PATIENT: Coni Dennison LOC: [facility] U#:[id number] AGE/SX: 63/F ROOM: RE02/21/[address]: Jose Walker MD : 1960 BED: DIS: 02/21/2024 SPEC #: [id number] RECD: 02/21/24 15:03 STATUS: JUANITA REAdrian #: [id number] TARAN: 02/21/24 13:[address]: Jose Walker DEPT: Surgical Specimen RECD BY: Rowena Ferreira ENTERED: 02/21/24 15:04 SP TYPE: MARGARITA MCCARTHY DR: Thomas Jones MD Tissues: 1 - SKIN BIOPSY(SHAVE/PUNCH) Procedures: GROSS AND MICRO LEVEL 4 IMMUNOPEROXIDASE STAIN Comments: [id number]
== END 2024-02-21 13:35 | disposition home or self-care (01) ==
LOC: LBN 13:34
PROVIDERS: PCP Family Medicine; Visit Provider Surgery
DX: D17.79 Benign lipomatous neoplasm of other sites
CPT/HCPCS: 88305; 88361

== ENCOUNTER → 2024-03-19 03:52 | Outpatient (CLI) | payer MEDICARE, SELFPAY ==
--- NOTE | 2024-03-19 08:00 | DI.MRI_ITS ---
Exam(s) MR UPPER JOINT LT WO/W EXAM: MR UPPER JOINT LT WO/W CLINICAL HISTORY: ? sarcoma,? joint involvement,MASS SKIN OF SHOULDER,R22.30 TECHNIQUE: Multiplanar multisequence MRI of the shoulder was performed. Both pre and post injected sequences were performed. IV contrast injected was Dotarem 20 mL COMPARISON: No exams were available for comparison FINDINGS: SOFT TISSUES: Immediately subjacent to the skin marker is a 5.0 X 2.8 x 2.2 cm nonenhancing intramus cular lipoma in the deltoid muscle on the lateral aspect of the shoulder. MARROW:There is no evidence of fracture, Hill-Sachs deformity, nor ominous osseous lesions. Small deg enerative subarticular cysts noted on the posterolateral aspect of the humeral head. GLENOHUMERAL JOINT: Mild amount of increased joint fluid. No large joint effusion nor intra articula r loose bodies. No prominent cartilage loss. No osteophytes. No degenerative subarticular cysts in the osseous glenoid.. ROTATOR CUFF MECHANISM: AC JOINT/ACROMIUM: There moderate degenerative changes in the glenohumeral joint.. There is no evidence of os acromiale. Supraspinatus: There is a small area of partial thickness articular side surface tearing of the dista l tendon. There is no fluid in the subacromial-subdeltoid bursa. Infraspinatus: Intact. No evidence of tear nor muscle atrophy. Teres Minor: Intact. No evidence of tear nor muscle atrophy. Subscapularis/anterior cuff: Partial surface tearing just anterior to the lesser tuberosity. BICEPS TENDON: Exhibits normal position within the intertubercular groove. No evidence of tear. Mild tenosynovitis. LABRUM: No labral tear identified. No evidence of paralabral cyst. IMPRESSION: 1. The palpable finding on the lateral aspect of the shoulder corresponds to a 5 x 2.8 x 2.8 cm benig n appearing intramuscular lipoma in the deltoid muscle. 2. Incidentally noted are partial surface tear is in the distal supraspinatus tendon and subscapulari s tendon. 3. Moderate degenerative changes are noted in the acromioclavicular joint. DATA REPOSITORY:
[2024-03-19 13:36] LABS: CREATININE 0.7 mg/dL (0.55-1.02); Estimated GFR 95.92 (mL/min/1.73m2)
[2024-03-19] MEDS: Normal Saline Flush 10 ML SYR IVP (14:22)
[2024-03-19] MEDS: Gadoterate meglumine 20 ML VIAL IVP (14:23)
--- NOTE | 2024-03-19 18:09 | DI.VRAD_ITS ---
PROCEDURE INFORMATION: Exam: MR Left Upper Extremity Joint Without and With Contrast; Shoulder Exam date and time: 03/19/2024 1:41 PM Age: 63 years old Clinical indication: Other: ? Sarcoma, ? joint involvement, mass skin of shoulder, TECHNIQUE: Imaging protocol: Magnetic resonance imaging of the left upper extremity without and with contrast. Exam focused on the shoulder. Contrast material: DOTAREM; Contrast volume: 20 ml; Contrast route: INTRAVENOUS (IV); COMPARISON: CT CHEST WO 01/19/2023 10:55 AM FINDINGS: Bones/joints: Acromioclavicular degenerative arthritis. Small glenohumeral effusion. Minimal reactive edema greater tuberosity of the humerus. Glenoid labrum: Irregularity of the superior glenoid labrum suspicious for low-grade SLAP tear. Supraspinatus tendon: Slight undersurface tearing of the distal supraspinatus tendon. Infraspinatus tendon: Unremarkable. No evidence of tear. Subscapularis tendon: High-grade partial tearing of the subscapularis tendon Teres minor tendon: Unremarkable. No evidence of tear. Tendon of biceps brachii: Unremarkable. No evidence of tear. Glenohumeral ligaments: Mild thickening and increased T2 signal inferior glenohumeral ligament consistent with low-grade partial tearing. Soft tissues: Intramuscular lipoma in anterolateral deltoid measuring approximately 3.1 x 2.5 x 5.1 cm in AP, transverse, and craniocaudad dimension. No findings to suggest malignancy. IMPRESSION: 1. 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 High-grade partial tearing subscapularis tendon 3. Slight undersurface tearing distal supraspinatus tendon 3. Partial tearing inferior glenohumeral ligament 4. Low-grade SLAP tear of the superior glenoid labrum 5. Acromioclavicular degenerative arthritis Dictated and Authenticated by: Caitlin Aguiar MD. Ordering:ARTEMIO Garcia MD
== END ==
PROVIDERS: PCP Family Medicine; Visit Provider Surgery
DX: R22.32 Localized swelling, mass and lump, left upper limb (principal)
CPT/HCPCS: 73223; 82565

== ENCOUNTER 2024-04-24 07:58 | Day surgery (SDC) | payer MEDICARE, SELFPAY ==
[2024-04-24 08:14] VITALS: BP 140/76; PULSE 70; RESP 20; TEMP 36.5; O2SAT 94
--- NOTE | 2024-04-24 08:29 | ANES.PREOP_ITS ---
General Info Date of Service Date Performed: 04/24/24 Height: 5 ft 6 in Weight: 105.687 kg Body Mass Index (BMI): 37.5 Surgical Procedure: Operation Date: 04/24/24 09:10 Proposed Procedure Side Surgeon p Excision Shoulder Lipoma Left Jose Walker MD Meds Allergies and Home Medications Allergies Allergy/AdvReac Type Severity Reaction Status Date / Time pneumococcal vaccine Allergy Severe [place] like Verified 04/23/24 10:56 she was floating away. bacitracin Allergy Intermediate Hives Verified 04/23/24 10:56 latex Allergy Intermediate Hives Verified 04/23/24 10:56 neomycin Allergy Intermediate Hives Verified 04/23/24 10:56 polymyxin B Allergy Intermediate Hives Verified 04/23/24 10:56 azithromycin AdvReac Intermediate Malaise, Verified 04/23/24 10:56 stomach discomfort trazodone AdvReac Intermediate Headache Verified 04/23/24 10:56 Home Medication Medication Instructions Recorded ibuprofen 600 mg tablet 600 mg PO HS 10/04/22 budesonide 0.5 mg/2 mL suspension 0.5 mg (2 mL) inhalation BID #60 mL 06/08/23 for nebulization blood sugar diagnostic (Blood #100 ea 11/08/23 Glucose Test strips) blood-glucose meter (Blood Glucose #1 ea 11/08/23 Monitoring kit) lancets #200 ea 11/08/23 pen needle, diabetic 31 gauge x #100 ea 11/10/23 5/16 (CareTouch Pen Needle) pen needle, diabetic 31 gauge x #100 ea 11/14/23 3/16 (Comfort EZ Pen [place]) furosemide 20 mg tablet 20 mg PO DAILY PRN 01/05/24 ipratropium 0.5 mg-albuterol 3 mg 3 ml inhalation QID PRN wheezing 01/15/24 (2.5 mg base)/3 mL nebulization #180 mL soln paroxetine HCl 20 mg tablet 20 mg PO DAILY #90 tab-caps 01/19/24 baclofen 10 mg tablet 10 mg PO TID PRN muscle spasm #90 02/24/24 tabs montelukast 10 mg tablet 10 mg PO DAILY PRN allergy #90 tabs 03/18/24 (Singulair) clonazepam 1 mg tablet 1 mg PO HS #28 tab-caps 03/26/24 insulin glargine 100 unit/mL (3 30 unit subcut QAM 04/23/24 mL) subcutaneous pen (Lantus Solostar U-100 Insulin) metoprolol succinate 25 mg 25 mg PO HS 04/23/24 tablet,extended release 24 hr Current Visit Medications: Current Medications Generic Name Dose Route Start Last Admin Trade Name Freq PRN Reason Stop Dose Admin Acetaminophen 1,000 mg 04/24/24 06:00 Acetaminophen 500 Mg Tab PO 04/24/24 23:59 PREOP YUE Celecoxib 200 mg 04/24/24 06:00 Celecoxib 200 Mg Cap PO 04/24/24 23:59 PREOP YUE Gabapentin 300 mg 04/24/24 06:00 Gabapentin 300 Mg Cap PO 04/24/24 23:59 PREOP YUE Ringer's Solution 1,000 mls @ 80 mls/hr 04/24/24 06:00 IV 04/24/24 23:59 INFUSION [facility] IV Miscellaneous Supplies 1 each 04/24/24 06:00 Iv Access IV 04/24/24 23:59 DIRECTED YUE Sodium Chloride 0 ml 04/24/24 06:00 Normal Saline Flush 10 Ml Syr IV 04/24/24 23:59 PRN PRN Sodium Chloride 0 ml 04/24/24 06:00 Normal Saline 10 Ml Vial IJ 04/24/24 23:59 DIRECTED PRN Sterile Water 0 ml 04/24/24 06:00 Water,Injection,Sterile 10 Ml Vial IJ 04/24/24 23:59 DIRECTED PRN PFSH Active Problems Active Problems: Problem Status Onset Code Mass of skin of shoulder R22.30 Acute sinusitis J01.90 Foreign body of right middle ear T16.1XXA Skin lesion of face L98.9 Parapharyngeal space mass R22.1 Otalgia of right ear H92.01 Tobacco abuse Z72.0 Right otitis media H66.91 Peripheral edema R60.0 Diabetes type 2, controlled E11.9 COPD exacerbation J44.1 Respiratory failure with hypoxia J96.91 Asthma-COPD overlap syndrome J44.9 Low back pain M54.50 Arthralgia M25.50 Anxiety F41.9 Personal history of nicotine dependence Z87.891 Essential hypertension I10 Hyperlipidemia E78.5 Chronic rhinitis J31.0 Movement disorder G25.9 Depression F32.9 Primary fibromyalgia syndrome M79.7 Medical History Medical History Prediabetes History of anal dysplasia 2021- [facility] [place] of the anus x2 areas, no further surgery needed- rec re-eval q6 months x 5 years Hx of substance abuse Diverticula of colon Severe disease involving the entire colon. Patient is status post sigmoid resection Cochlear implant in place Abnormal cervical Papanicolaou smear (04/26/05) Grief at loss of child (2018) due to drug overdose; raising her granddaughter Psoriasis (02/24/11) on back Mantoux: positive + PPD; neg. 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 States when she had a previous surgery stated she was prone My heart didn't stop but my lungs did, they had to intubate me She also states I am very hard to wake up, I had people screaming and shaking me and i wont wake up but if you hold my hand and tub my hand Ill wake up States mother has issue with Morphine. Surgical History Surgical History History of tympanoplasty of right ear [facility] [place] 2013 S/P laparoscopic cholecystectomy (2000) S/P partial colectomy (~2002) S/P cataract extraction (07/2023) History of colonoscopy (~07/23/21) Hx of tonsillectomy History of bilateral oophorectomy (1999) History of hysteroscopy (2010) [facility]: 1. FRAGMENTS OF BENIGN POLYPOID INACTIVE ENDOMETRIUM WITH FOCAL TUBAL METAPLASIA. 2. FRAGMENT OF CERVICAL SQUAMOUS MUCOSA AND ENDOCERVICAL GLANDS WITH NO SPECIFIC HISTOPATHOLOGIC FEATURES. Endometrial Biopsy, 12/08/10 [facility]; 1.BENIGN POLYPOID INACTIVE ENDOMETRIUM WITH FOCAL TUBAL METAPLASIA. Status post adenoidectomy Endometrial Biopsy (~05/2005) Dilation and curettage (12/08/10) Cervical Procedure (~06/2005) COLPOSCOPY Tobacco Smoking/Tobacco Use Status: Current every day Tobacco Type: cigarettes Smoking packs per day: 0.5 Smoking cigarettes per day: 10.0 Passive smoking exposure: Yes Counseling given: provider counseling Alcohol Alcohol Intake: former Substance Use Substance use: Never Substance use type: does not use Prental History History 2 Para 2 Hx # Term Pregnancies Multiple births Hx # Pregnancies Ectopic pregnancies AB induced Hx Number of Living Children AB spontaneous Vital Signs and Lab Results Point of Care Results Point of Care Results: Finger Stick Blood Glucose 101 04/24/24 08:19 Lab Results Blood Type / Crossmatch: No Data to Display Complete Blood Count: No Data to Display Complete Metabolic Panel: No Data to Display Liver Function Panel: No Data to Display Coagulation Panel: No Data to Display Cardiac Panel: No Data to Display Arterial Blood Gas: No Data to Display Venous Blood Gas: No Data to Display Pancreas Panel: No Data to Display Thyroid Panel: No Data to Display Infectious Disease: No Data to Display Blood Cultures: No Data to Display Toxicology Panel: No Data to Display Imaging and Studies Imaging and Studies Study information below may be from another EMR and interpreted by another provider. Please see original notes in EMR for more complete details. Pulmonary Function Summary: Pulmonary Function Test Result Interpretation Spirometry: Moderately severe obstructive airways disease with no significant bronchodilator response Impression Moderately severe obstructive airways disease with no significant bronchodilator re Clinical Correlation therefore is recommended. Anesthesia Assessment and Plan Anesthesia History Personal History: Delayed Emergence and Other Family History: Other Exercise Tolerance Exercise Tolerance: Metabolic Equivalents>4 Pertinent Negatives Pertinent Negatives: No Symptoms of GERD Cardiac & Pulmonary Exam Cardiac Exam: Normal S1/S2 Heart Sounds Pulmonary Exam: Wheezing Present Implantable Cardiac Device Does patient have a Pacemaker or an ICD?: No Airway Exam Known Difficult Airway: No Mallampati Class: 3 Mouth Opening: Normal (> 3cm) Thyromental Distance: Greater than 3 cm Neck Range of Motion: Full ROM Neck Circumference: Normal Teeth Condition: Normal Dentition ASA Classification ASA Score: ASA 3 Emergency Case?: No NPO Status NPO Status: NPO Clears >2 hours, Solids >8 hours Anesthesia Plan Resuscitation Status: Full Code Anesthesia Technique: General Anesthesia Airway Planned: Natural Airway Monitors Used: Standard Monitors Preoperative Comments:: Pt has significant pulmonary disease with O2 requirement of 2L/min. Does not wear CPAP. Takes inhaler 4X/Day. Smokes 1/2p/day.
[2024-04-24 08:33] VITALS: BMI 37.5
[2024-04-24] MEDS: Celecoxib 200 MG CAP PO (08:40)
[2024-04-24] MEDS: Gabapentin 300 MG CAP PO (08:40)
[2024-04-24] MEDS: Acetaminophen 500 MG TAB 1000 MG PO (08:40)
[2024-04-24] MEDS: Lactated Ringers 1,000 ML 80 ML IV (08:58)
--- NOTE | 2024-04-24 09:46 | W.PM.HP.N ---
Date of service: 04/24/24 Time of Service: 09:46 Assessment and Plan Assessment and plan (1) Mass of skin of shoulder: Status: Acute Assessment and plan: We reviewed the plan for excision and primary closure of this mass, as well as the risks and the benefits of the procedure. I think she has a very good understanding with regards to what to expect for the procedure as well as the recovery. She was able to provide informed consent, will move to the operating room now. History of Present Illness History of Present Illness Chief Complaint: Left shoulder mass Narrative: Sejal is a 63-year-old woman who is got a mass on the proximal portion of her left shoulder, superficial to the deltoid. It is causing pain with range of motion of the shoulder. Clinical features seem consistent with a lipoma. She underwent core needle biopsy in the office the pathology of which seems most consistent with an intramuscular lipoma. This was followed up with an MRI to better characterize the lesion. She would like excision of the mass for definitive treatment diagnosis. PFSH All Active Problems Mass of skin of shoulder (Acute) Acute sinusitis (Acute) Foreign body of right middle ear (Acute) Skin lesion of face (Acute) Parapharyngeal space mass (Acute) Found on [place] [facility] [place]16[place]2023, referred back to ENT at [facility] for evaluation 12/06/23 Otalgia of right ear (Acute) Tobacco abuse (Acute) Right otitis media (Acute) Peripheral edema (Acute) Diabetes type 2, controlled (Acute) COPD exacerbation (Acute) Respiratory failure with hypoxia (Chronic) maintained on continuous O2 Asthma-COPD overlap syndrome (Chronic) 12/2021- difficulty with extubation [facility], pulm consult placed by them; maintained on nebs, continuous O2 Low back pain (Chronic) improved with baclofen Arthralgia (Acute) Anxiety (Chronic) Personal history of nicotine dependence (Acute) 12/2021-1 ppd about 20-25 pk yr hx PFT ordered [facility] Essential hypertension (Acute) Hyperlipidemia (Acute) Chronic rhinitis (Acute) Movement disorder (Acute) Upcoming MRI at [place] in August 2023 post stroke, Depression (Chronic) Primary fibromyalgia syndrome (Chronic) Medical History Prediabetes History of anal dysplasia 2021- [facility] of the anus x2 areas, no further surgery needed- rec re-eval q6 months x 5 years Hx of substance abuse Diverticula of colon Severe disease involving the entire colon. Patient is status post sigmoid resection Cochlear implant in place Abnormal cervical Papanicolaou smear (04/26/05) Grief at loss of child (2018) due to drug overdose; raising her granddaughter Psoriasis (02/24/11) on back Mantoux: positive + PPD; neg. 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 FRAGMENTS OF BENIGN POLYPOID INACTIVE ENDOMETRIUM WITH FOCAL TUBAL METAPLASIA. 2. FRAGMENT OF CERVICAL SQUAMOUS MUCOSA AND ENDOCERVICAL GLANDS WITH NO SPECIFIC HISTOPATHOLOGIC FEATURES. Endometrial Biopsy, 12/08/10 [facility]; 1.BENIGN POLYPOID INACTIVE ENDOMETRIUM WITH FOCAL TUBAL METAPLASIA. Status post adenoidectomy Endometrial Biopsy (~05/2005) Dilation and curettage (12/08/10) Cervical Procedure (~06/2005) COLPOSCOPY Family History Mother Essential hypertension Dementia Breast cancer Father Prostate cancer Bone cancer Brother No problems noted. Maternal Grandfather No problems noted. Paternal Grandfather No problems noted. Maternal Grandmother No problems noted. Paternal Grandmother Dementia Daughter Diabetes Essential hypertension Asthma Hyperlipidemia Daughter , age 38 Depression Substance abuse Social History Smoking/Tobacco Use Status: Current every day Tobacco Type: cigarettes Smoking packs per day: 0.5 Smoking cigarettes per day: 10.0 Tobacco: How many years used: 40 Quit status: has quit before Counseling given: provider counseling Smoking risk assessment performed?: Yes Alcohol Intake: former Drug use: Never Substance use type: does not use Details: 04/24/24: pt smoked 2 cigarettes prior to DSU this manager pipeline/Support person: No Household members: spouse, children and other Details: Grandchildren Housing: house Communication Needs: None Do you need help understanding health information?: Never Pets and animals: Yes Sexually active: No Do you think of yourself as: straight/heterosexual Current gender identity: female What is your relationship status?: How often do you talk on the phone with friends or family?: once per week How often do you get together with friends or relatives?: never How often do you attend denominational or tenriism services?: decline to answer Do you belong to any clubs or organized social groups?: no Panel score (0-1 are the most socially isolated patients): 1 What type of physical activity do you participate in: none Frequency: does not exercise Katlyn/Yarsanism: None Special katlyn needs: No Seatbelt use: always Drive intox or ride w/intox team driver: No Do you feel safe at home: Yes (Unable to assess privately) Do you feel safe in your relationship?: Yes Victim of physical abuse: No Victim of emotional abuse: No Victim of sexual abuse: No Would you like helpful sources: No Female Reproductive History Menstrual Menopause type: natural (2010) History History 2 Para 2 Hx # Term Pregnancies Multiple births Hx # Pregnancies Ectopic pregnancies AB induced Hx Number of Living Children AB spontaneous Meds Allergies and Home Medications Allergies Allergy/AdvReac Type Severity Reaction Status Date / Time pneumococcal vaccine Allergy Severe [place] like Verified 04/24/24 09:18 she was floating away. bacitracin Allergy Intermediate Hives Verified 04/24/24 09:18 latex Allergy Intermediate Hives Verified 04/24/24 09:18 neomycin Allergy Intermediate Hives Verified 04/24/24 09:18 polymyxin B Allergy Intermediate Hives Verified 04/24/24 09:18 azithromycin AdvReac Intermediate Malaise, Verified 04/24/24 09:18 stomach discomfort trazodone AdvReac Intermediate Headache Verified 04/24/24 09:18 Home Medications Medication Instructions Recorded Confirmed Type ibuprofen 600 mg tablet 600 mg PO HS 10/04/22 04/24/24 History budesonide 0.5 mg/2 mL suspension 0.5 mg (2 mL) inhalation BID #60 mL 06/08/23 04/23/24 Rx for nebulization blood sugar diagnostic (Blood #100 ea 11/08/23 02/28/24 Rx Glucose Test strips) blood-glucose meter (Blood Glucose #1 ea 11/08/23 02/28/24 Rx Monitoring kit) lancets #200 ea 11/08/23 02/28/24 Rx pen needle, diabetic 31 gauge x #100 ea 11/10/23 02/28/24 Rx 5/16 (CareTouch Pen Needle) pen needle, diabetic 31 gauge x #100 ea 11/14/23 02/28/24 Rx 3/16 (Comfort EZ Pen [place]) furosemide 20 mg tablet 20 mg PO DAILY PRN 01/05/24 04/24/24 History ipratropium 0.5 mg-albuterol 3 mg 3 ml inhalation QID PRN wheezing 01/15/24 04/24/24 Rx (2.5 mg base)/3 mL nebulization #180 mL soln paroxetine HCl 20 mg tablet 20 mg PO DAILY #90 tab-caps 01/19/24 04/24/24 Rx baclofen 10 mg tablet 10 mg PO TID PRN muscle spasm #90 02/24/24 04/24/24 Rx tabs montelukast 10 mg tablet 10 mg PO DAILY PRN allergy #90 tabs 03/18/24 04/24/24 Rx (Singulair) clonazepam 1 mg tablet 1 mg PO HS #28 tab-caps 03/26/24 04/24/24 Rx insulin glargine 100 unit/mL (3 30 unit subcut QAM 04/23/24 04/24/24 History mL) subcutaneous pen (Lantus Solostar U-100 Insulin) metoprolol succinate 25 mg 25 mg PO HS 04/23/24 04/24/24 History tablet,extended release 24 hr Exam Const General: cooperative, healthy appearing and not in acute distress Neck Neck: normal visual inspection, no lymphadenopathy and supple Resp Effort & Inspection: normal respiratory effort Auscultation: bronchovesicular breath sounds and wheezes Cardio Jugular venous pressure: no JVD Rate: regular rate Rhythm: regular rhythm Heart Sounds: S1 normal and S2 normal GI Inspection: normal to inspection Palpation: soft, no guarding, no hernias and nontender Percussion: normal to percussion Auscultation: normal bowel sounds Skin Other: Rubbery, slightly mobile mass in the left deltoid Neuro General: patient alert, patient awake and patient oriented x3 Psych Appearance: grossly normal Results Last Vital Signs Temp 97.7 F 04/24/24 08:14 Pulse 70 04/24/24 08:14 Resp 16 04/24/24 08:14 BP 140/76 04/24/24 08:14 Pulse Ox 94 04/24/24 08:14 Time Spent Time spent with Patient: <40 minutes Time was spent: care coordination
--- NOTE | 2024-04-24 10:13 | SOFT_PTH ---
PATIENT: Coni Dennison LOC: [facility] U#:[id number] AGE/SX: 63/F ROOM: RE04/24/[address]: Jose Walker MD : 1960 BED: DIS: 04/24/2024 SPEC #: [id number] RECD: 04/24/24 11:41 STATUS: JUANITA REQ #: [id number] TARAN: 04/24/24 10:[address]: Jose Walker DEPT: Surgical Specimen RECD BY: Brooklyn Mark ENTERED: 04/24/24 11:42 SP TYPE: SOFT OTHR DR: Thomas Jones MD Tissues: 1 - SOFT TISSUE MISC (INC. LIPOMA) Procedures: GROSS AND MICRO LEVEL 3 Comments: [id number]
[2024-04-24] MEDS: Bupivacaine 0.25% Pres-Free 30 ML VIAL (10:19)
--- NOTE | 2024-04-24 10:21 | W.PM.DSUDISC ---
Date of service: 04/24/24 Time of Service: 10:21 Discharge Plan Disposition Patient Disposition: Home Condition: Good Discharge Details Reason For Visit: Excision of left shoulder lipoma Attending Provider: Jose Walker Primary Care Provider: Thomas Jones Home Meds and New Rx's Prescriptions: Continued (DME) blood-glucose meter [Blood Glucose Monitoring] Kit See Rx Instructions .Route Qty: 1 0RF Rx Instructions: Test fasting and before meals (DME) Blood Glucose Test Strip See Rx Instructions .Route Qty: 100 12RF Rx Instructions: Fasting and before meals (DME) lancets Misc See Rx Instructions .ROUTE .MEDSUPPLY Qty: 200 4RF Rx Instructions: Check blood sugar QID (DME) pen needle, diabetic [Comfort EZ Pen [place]] 31 gauge x 3/16 needle See Rx Instructions .Route Qty: 100 12RF Rx Instructions: Inject once daily as directed (DME) pen needle, diabetic [CareTouch Pen Needle] 31 gauge x 5/16 needle See Rx Instructions .Route Qty: 100 12RF Rx Instructions: As directed - use daily ipratropium-albuterol 0.5 mg-3 mg(2.5 mg base)/3 mL solution for nebulization 3 ml inhalation QID PRN (Reason: wheezing) Qty: 180 6RF paroxetine HCl 20 mg tablet 20 mg PO DAILY Qty: 90 4RF baclofen 10 mg tablet 10 mg PO TID PRN (Reason: muscle spasm) Qty: 90 1RF montelukast [Singulair] 10 mg tablet 10 mg PO DAILY PRN (Reason: allergy) Qty: 90 3RF clonazepam 1 mg tablet 1 mg PO HS Qty: 28 2RF ibuprofen 600 mg tablet 600 mg PO HS metoprolol succinate 25 mg tablet extended release 24 hr 25 mg PO HS insulin glargine [Lantus Solostar U-100 Insulin] 100 unit/mL (3 mL) insulin pen 30 unit subcut QAM Discontinued budesonide 0.5 mg/2 mL suspension for nebulization 0.5 mg inhalation BID Qty: 60 12RF Patient Comments: 04/24/24: pt reports she does not take furosemide 20 mg tablet 20 mg PO DAILY PRN Patient Comments: 04/24/24: pt reports has not taken in a long time. Discharge Instructions Additional Instructions: Sejal, we are able to remove that lump from her left shoulder today just like we talked about. It looks like a lipoma, which is what we expected, but I will send it off to the pathologist to be tested. Hopefully this was a comfortable procedure for you. Do not be alarmed if you have a little bit of increased pain over the next day or so as some of the numbing medication wears off. You should be up and moving around, and slowly stretching your shoulder from time to time to help relax the muscle and the soft tissues. I look forward to seeing you in the office for routine postoperative check. If you need anything in the meantime, please do not hesitate to let me know. 1. Resume all of your regular medications. 2. Alternate heating pads and ice packs over the incision if needed for pain. 3. Okay to use tylenol and ibuprofen over the counter as needed. 4. Leave bandage in place for 24 hours, then remove. 5. Shower with warm soapy water. Pat dry. Use a bandaid if needed to protect your clothing. 6. No soaking or tub baths until I see you in the office. 7. No heavy lifting until I see you in the office. 8. Call the office (or go directly to the emergency room after hours) if you notice any of the following: Develop chills (warm to touch), or if you have a thermometer and your temperature is above 101 Difficulty breathing or difficultly swallowing Persistent vomiting Any bleeding ? exceeding one tablespoon 9. Call your physician if the site where your intravenous was started becomes red, swollen, painful, and warm to touch. Stand Alone Forms: Anesthesia Discharge InstHolger, Gareth Sorto (DSU) Referrals: Jose Walker MD [ [facility] STAFF PHYSICIAN] - 05/07/25 Activity:: Activity as Tolerated Remove Dressings/Wound Care:: 24 hours Shower/Bathe:: 24 hours Diet:: As Tolerated DS: Diagnosis Discharge Diagnosis (1) Mass of skin of shoulder: Status: Acute Asessment and Plan: Routine postoperative follow-up
[2024-04-24 10:30] VITALS: BP 131/71; PULSE 63; RESP 22; TEMP 36; O2SAT 99
--- NOTE | 2024-04-24 10:36 | W.PM.OP ---
Date of service: 04/24/24 Time of Service: 10:36 Operative Note Operative Note DATE OF PROCEDURE: 04/24/24 PRE-OP DIAGNOSIS: Left shoulder lipoma POST-OP DIAGNOSIS: same PROCEDURE: Excision and primary closure of left shoulder lipoma SURGEON: Jose Walker POWERTRAIN CONTROL SYSTEMS ENGINEER: Sarina Yeager ANESTHESIA TYPE: Local By Surgeon and General:No Airway Refer to Anesthesia Record ESTIMATED BLOOD LOSS: 15 PATHOLOGY: other (Left shoulder mass) COMPLICATIONS: None Patient was transported to: same day Patient's condition: stable Indications: Sejal is a 63-year-old woman with a mass on the left deltoid region with clinical features consistent with a lipoma. Core needle biopsy suggested intramuscular component. In light of the symptoms, as well as the patient's pain, excision is recommended Findings: Intramuscular lipoma of the left shoulder Procedure Description: Patient was brought to the operating room, and assisted to the seated position on the hospital stretcher. Great care was taken to his ensure that she was padded and supported appropriately. Next, I prepped and draped the left shoulder. Some anesthesia was then initiated, and I established a generous field block using local anesthetic. Next, I made a longitudinal incision over the top portion of the mass and dissected down through the subcutaneous fat. The deep fat, we encountered the capsule consistent with a lipoma. Great care was taken to dissect away the surrounding soft tissues. There were some fibers of the deltoid muscle draping over the lipoma. The mass was completely excised along the underside, and passed off as a specimen. Electrocautery was used to ensure hemostasis on the muscular fibers. Surgical site was then irrigated. It was hemostatic. Deep tissue was approximated, and the skin was closed with a running subcuticular stitch. Bandages were applied, the patient was brought back to same-day surgery unit. Incision size was approximately 7 cm in length, and the mass itself was about 5 cm x 3 cm x 4 cm.
[2024-04-24 11:02] VITALS: BP 148/78; PULSE 67; RESP 22; TEMP 36.2; O2SAT 98
--- NOTE | 2024-04-24 11:07 | W.ANESPOSTOP ---
Postoperative Evaluation Date, Time and Location Date Performed: 04/24/24 Time Performed: 10:30 Patient Location: Day Surgery Unit Vital Signs Most Recent Imported Vital Signs: Most Recent Vital Signs Temp Pulse Resp BP Pulse Ox 36 C L 63 22 131/71 99 04/24/24 10:30 04/24/24 10:30 04/24/24 10:30 04/24/24 10:30 04/24/24 10:30 Pain Score Most Recent Pain Score: Most Recent Pain Score Pain Level 0 04/24/24 10:30 Assessment Mental Status: Awake (Alert & Oriented to Patient Baseline) Airway and Respiratory Function: Patent airway with normal (patient baseline) respiratory exam Cardiovascular Function: Hemodynamically Stable Hydration Status: Adequately Hydrated Nausea & Vomiting: No Nausea or Vomiting Pain: Pt. Denies Any Pain Peripheral Nerve Block: Patient did not receive a nerve block
== END 2024-04-24 11:10 | disposition home or self-care (01) ==
PROVIDERS: PCP Family Medicine; Visit Provider Surgery
PROC: (CPT 11406; principal; 2024-04-24 09:00)
DX: D17.22 Benign lipomatous neoplasm of skin and subcutaneous tissue of left arm (principal); E11.9 Type 2 diabetes mellitus without complications; I10 Essential (primary) hypertension; E78.5 Hyperlipidemia, unspecified
CPT/HCPCS: 11406; 12032; 88304; J0665; J2001; J2704

== ENCOUNTER → 2024-05-14 11:19 | Outpatient (BNVA) | payer MEDICARE, SELFPAY | PROVIDERS: PCP Family Medicine; Referring Provider Family Medicine; Visit Provider Surgery | DX: Z48.817 Encounter for surgical aftercare following surgery on the skin and subcutaneous tissue (principal) ==

== ENCOUNTER 2024-12-10 15:54 | Outpatient (CLI) | payer MEDICARE, SELFPAY ==
--- NOTE | 2024-12-10 13:30 | DI.RAD_ITS ---
Exam(s) XR SHOULDER RT COMPLETE 2+V EXAM: XR SHOULDER RT COMPLETE 2+V CLINICAL HISTORY: BILATERAL SHOULDER PAIN. TECHNIQUE: 2D digital imaging was performed of the right shoulder. Two images were obtained. Grash ey and axillary views were obtained. COMPARISON: There are no priors for comparison. FINDINGS: BONES: No acute fracture is present. No bony destructive lesion is seen. JOINTS: No dislocation present. Glenohumeral joint is well maintained. The acromioclavicular joint a lso appears well maintained. SOFT TISSUE: Normal. IMPRESSION: No acute abnormality. DATA REPOSITORY: RADIATION DOSE DELIVERED:
--- NOTE | 2024-12-10 13:30 | DI.RAD_ITS ---
Exam(s) XR SHOULDER LT COMPLETE 2+V EXAM: XR SHOULDER LT COMPLETE 2+V CLINICAL HISTORY: BILATERAL SHOULDER PAIN. TECHNIQUE: 2D digital imaging was performed of the left shoulder. Two images were obtained. Grashe y and axillary views were obtained. COMPARISON: MR MR UPPER JOINT LT WO/W from 03/19/2024 FINDINGS: BONES: No acute fracture is present. No bony destructive lesion is seen. JOINTS: No dislocation present. The glenohumeral joint is well maintained. There are mild degenerati ve changes seen at the acromioclavicular joint. SOFT TISSUE: Normal. IMPRESSION: Mild degenerative changes of the acromioclavicular joint. DATA REPOSITORY: RADIATION DOSE DELIVERED:
== END 2024-12-10 15:55 | disposition home or self-care (01) ==
LOC: DIORS 15:55
PROVIDERS: PCP Family Medicine; Referring Provider Family Medicine; Visit Provider Student in an Organized Health Care Education/Training Program
DX: M75.52 Bursitis of left shoulder; S46.011D Strain of muscle(s) and tendon(s) of the rotator cuff of right shoulder, subsequent encounter; X58.XXXD Exposure to other specified factors, subsequent encounter; E11.9 Type 2 diabetes mellitus without complications; F17.210 Nicotine dependence, cigarettes, uncomplicated
CPT/HCPCS: 99214; 73030

== ENCOUNTER 2025-03-25 15:42 | Outpatient (CLI) | payer MEDICARE, SELFPAY ==
--- NOTE | 2025-03-25 15:25 | DI.RAD_ITS ---
Exam(s) XR CHEST 2V PA LATERAL EXAM: XR CHEST 2V PA LATERAL CLINICAL HISTORY: SOB, r/o pneumonia R06.02 TECHNIQUE: 2D digital imaging was performed. Two views. COMPARISON: No exams were available for comparison FINDINGS: HEART: Normal size. Aorta: Not dilated. PULMONARY VASCULATURE: Normal. MEDIASTINUM: Unremarkable. LUNGS: Clear. PLEURAL SPACE: No pleural effusion or pneumothorax. BONE:Unremarkable for age. SOFT TISSUES: Unremarkable. IMPRESSION: No acute abnormality. DATA REPOSITORY: RADIATION DOSE DELIVERED:
== END 2025-03-25 16:02 ==
LOC: DI 15:47
PROVIDERS: PCP Family Medicine; Visit Provider Physician Assistant
DX: R06.02 Shortness of breath (principal)
CPT/HCPCS: 71046

== ENCOUNTER 2025-03-25 16:32 | Outpatient (REF) | payer MEDICARE, SELFPAY ==
[2025-03-25 21:20] LABS: Abs Immature Grans 0.04 10^3/uL (0.0-0.06); Absolute Basophil Count 0.05 10^3/uL (0.0-0.2); Absolute Eosinophil Count 0.29 10^3/uL (0.0-0.7); Absolute Lymphocyte Count 2.36 10^3/uL (1.2-3.4); Basophils % 0.4 %; Eosinophils % 2.4 %; HGB 12.3 g/dL (11.2-15.7); Immature Grans % 0.3 %; Lymphocytes % 19.5 %; MCH 30.4 pg (27.0-33.0); MCHC 31.5 % (32.0-36.0); MCV 96 fL (80-95); MPV 9.3 fL (8.0-11.0); Monocytes % 7.3 %; Neutrophils % 70.1 %; Platelet Count 402 10^3/uL (130-400); RBC 4.05 10^6/uL (3.93-5.22); RDW 12.5 % (11.7-14.6); RDW-SD 44.9 fL; WBC 12.11 10^3/uL (4.4-10.8)
[2025-03-25 21:24] LABS: Absolute Monocyte Count 0.88 10^3/uL (0.1-0.8); Absolute Neutrophil Count 8.49 10^3/uL (1.2-6.7)
[2025-03-25 21:25] LABS: Anion Gap 4.5 mmol/L (3-11); BUN 14 mg/dL (7-18); CO2 38.5 mmol/L (21.0-32.0); CREATININE 0.6 mg/dL (0.55-1.02); Calcium 9.6 mg/dL (8.5-10.1); Chloride 102 mmol/L (98-107); Estimated GFR 98.93 (mL/min/1.73m2); Glucose 103 mg/dL (74-106); Potassium 4.1 mmol/L (3.5-5.1); Sodium 145 mmol/L (136-145)
== END 2025-03-25 16:33 | disposition home or self-care (01) ==
LOC: LBN 16:32
PROVIDERS: PCP Family Medicine; Visit Provider Physician Assistant
DX: R06.02 Shortness of breath (principal)
CPT/HCPCS: 80048; 85025

== ENCOUNTER → 2025-06-12 13:56 | Outpatient (BNVA) | payer MEDICARE, SELFPAY | PROVIDERS: PCP Family Medicine; Referring Provider Family Medicine; Visit Provider Physical Therapy Assistant | DX: D48.5 Neoplasm of uncertain behavior of skin (principal) | CPT/HCPCS: 99213 ==

== ENCOUNTER 2025-07-09 12:52 | Outpatient (REF) | payer MEDICARE, SELFPAY ==
--- NOTE | 2025-07-09 13:48 | SKI_PTH ---
PATIENT: Coni Dennison LOC: [facility]#:[id number] AGE/SX: 65/F ROOM: RE07/09/[address]: GUERDA Haney : 1960 BED: DIS: 07/09/2025 SPEC #: [id number] RECD: 07/09/25 16:02 STATUS: JUANITA MARCELO #: [id number] TARAN: 07/09/25 13:[address]: Sarina Yeager DEPT: Surgical Specimen RECD BY: Brooklyn Mark ENTERED: 07/09/25 16:03 SP TYPE: MARGARITA MCCARTHY DR: Thomas Jones MD Tissues: 1 - SKIN BIOPSY(SHAVE/PUNCH) Procedures: SKIN LEVEL 4 Comments: [id number]
== END 2025-07-09 12:53 | disposition home or self-care (01) ==
LOC: SUO 12:52
PROVIDERS: PCP Family Medicine; Referring Provider Family Medicine; Visit Provider Physical Therapy Assistant
DX: C44.622 Squamous cell carcinoma of skin of right upper limb, including shoulder (principal)
CPT/HCPCS: 11622; 88305

== ENCOUNTER → 2025-07-24 14:18 | Outpatient (BNVA) | payer MEDICARE, SELFPAY | PROVIDERS: PCP Family Medicine; Referring Provider Family Medicine; Visit Provider Physical Therapy Assistant | DX: C44.622 Squamous cell carcinoma of skin of right upper limb, including shoulder (principal); Z48.02 Encounter for removal of sutures | CPT/HCPCS: 99024 ==

== ENCOUNTER 2025-08-27 03:29 | Outpatient (CLI) | payer MEDICARE, SELFPAY ==
--- NOTE | 2025-08-27 07:00 | DI.MRI_ITS ---
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 CONTRAST MATERIAL: IV Contrast: 19 mL of Magnevist contrast administered. COMPARISON: MR MRI - CERVICAL SPINE WO CONT from 04/11/2017 MR MRI SOFT TISSUE NECK WWO CONTRAST from 09/14/2024 FINDINGS: Exam is somewhat limited by motion. ORBITS: The anterior and posterior chambers of the globes are intact. The retrobulbar fat is unremarkable. Extraocular muscles are unremarkable. OPTIC NERVES: The intracranial and extracranial portions of the optic nerves are within normal limits. Optic chiasm is within normal limits. No MRI evidence of optic neuritis identified. SOFT TISSUES: The superior opthalmic veins are unremarkable. Remaining soft tissues are unremarkable. Visualized portions of the brain: Clear left lacunar infarct again noted. Parotids/submandibular/thyroid gland: Normal. Lymphadenopathy: There is scattered lymph nodes seen along the level one to level three all measuring less than 8 mm in short axis diameter which are physiologic in nature. Soft tissues: Previously noted mass in the right parapharyngeal space appears unchanged in size and is measured at 2.6 x 1.4 by 3 cm.. It has a mildly heterogeneous composition with areas of increased signal on T1 weighted images at the borders of the mass. There are no invasive features. The floor the mouth is unremarkable. The epiglottis and vocal cords are within normal limits. Images through both lung apices are unremarkable. IMPRESSION: Stable size of right parapharyngeal mass. No new abnormalities are identified. DATA REPOSITORY:
[2025-08-27] MEDS: Gadoterate meglumine 20 ML VIAL IVP (13:16)
[2025-08-27] MEDS: Normal Saline Flush 10 ML SYR IVP (13:16)
== END 2025-08-27 03:49 ==
LOC: DI 03:30
PROVIDERS: PCP Family Medicine; Visit Provider Family Medicine
DX: R22.1 Localized swelling, mass and lump, neck (principal)
CPT/HCPCS: 70543